=== PATIENT | female | born 1985 | race Caucasian/White ===

== ENCOUNTER 2017-12-14 17:55 | Emergency (ER) | payer OTHER, MEDICAID ==
[2017-12-14 20:02] LABS: Urine Blood NEGATIVE (NEG); Urine Glucose NEGATIVE (NEG); Urine Protein NEGATIVE (NEG); Urine Specific Gravity >1.030 (1.005-1.030)
[2017-12-14 20:04] LABS: Absolute Lymphocytes (CBC) 2.9 K/uL (0.7-4.9); Absolute Monocytes 0.8 K/uL (0.1-1.3); Absolute Neutrophil 2.9 K/uL (1.8-8.0); Basophils % 0.4 % (0-1.3); Eosinophils % 3.2 % (0-4.4); Hematocrit 35.8 % (36.0-45.0); Lymphocytes % 42.6 % (15.3-44.8); MCH 29.6 pg (27.0-35.0); MCV 87.3 fL (80-100); MPV 6.8 fL (7.6-11.3)
[2017-12-14] MEDS ORDERED: ONDANSETRON 4 MG/2 ML VIAL ONE (20:11)
[2017-12-14] MEDS ORDERED: ACETAMINOPHEN 500 MG TAB ONE (20:13)
[2017-12-14 20:44] LABS: BUN Blood Urea Nitrogen 13 mg/dL (7-18); Bicarbonate 23 mmol/L (21-32); Glucose Level 81 mg/dL (74-106); HCG, Quantitative 30922 mIU/mL (1-3); Potassium 3.4 mmol/L (3.5-5.1); Sodium Level 136 mmol/L (136-145)
[2017-12-14 20:57] LABS: Urine Bacteria 20-50 /HPF (<20); Urine Culture Reflex Order REFLEXED; Urine Mucus SLIGHT /HPF (NONE SEEN); Urine RBC <5 /HPF (NONE SEEN)
--- NOTE | 2017-12-14 21:07 | RAD REPORT ---
EXAM DESCRIPTION: US - Pelvis Complete - 12/14/2017 8:45 pm CLINICAL HISTORY: Pelvic COMPARISON: None. TECHNIQUE: Transabdominal pelvic sonography was performed. FINDINGS: A normal shaped intrauterine gestational sac identified with yolk sac and pole. Gest ational sac and pole measurements indicate 6 week 4 day age. Calculated CUCA is 08/05/2018. Hear t rate was 121 BPM. No intrauterine hematoma or mass. No suspicious adnexal finding. IMPRESSION: Single 6 week 4 day IUP with 121 BPM heart rate.
[2017-12-14] MEDS ORDERED: AZITHROMYCIN 250 MG TAB ONE (21:52)
[2017-12-14] MEDS ORDERED: CEFTRIAXONE/SWI 1gm 1 GM/10 ML SYR ONE (21:52)
--- NOTE | 2017-12-14 22:26 | ER ---
Nurse's Notes [facility] Name: Janet Alcantara Age: 32 yrs Sex: Female : 1985 Arrival Date: 12/14/2017 Time: 17:59 Bed 14 Private MD: Diagnosis: Acute pelvic pain in first trimester ;vaginal discharge;nausea Presentation: 12/14 18:05 Presenting complaint: Patient states: Reports foul smelling bloody yellow discharge for aj 4-5 days with sharp pelvic pains and migraine. Transition of care: patient was not received from another setting of care. Onset of symptoms was December 09, 2017. Risk Assessment: Do you want to hurt yourself or someone else? Patient reports no desire to harm self or others. Initial Sepsis Screen: Does the patient meet any 2 criteria? No. Patient's initial sepsis screen is negative. Does the patient have a suspected source of infection? No. Patient's initial sepsis screen is negative. Care prior to arrival: None. 18:05 Method Of Arrival: Ambulatory aj 18:05 Acuity: NUNO 3 aj Triage Assessment: 18:07 General: Appears in no apparent distress. comfortable, Behavior is calm, cooperative, aj appropriate for age. Pain: Complains of pain in pelvis. Neuro: Level of Consciousness is awake, alert, obeys commands, Oriented to person, place, time, situation, Appropriate for age. Respiratory: Airway is patent Respiratory effort is even, unlabored, Respiratory pattern is regular, symmetrical. : Reports discharge, malodorous, yellow, pain in suprapubic area vaginal bleeding that is spotty. Derm: Skin is intact, is healthy with good turgor, Skin is pink, warm \\T\\ dry. normal. 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 - Social history:: Smoking status: Patient uses tobacco products, smokes one-half pack cigarettes per day. - Ebola Screening: : Patient negative for fever greater than or equal to 101.5 degrees Fahrenheit, and additional compatible Ebola Virus Disease symptoms Patient denies exposure to infectious person Patient denies travel to an Ebola-affected area in the 21 days before illness onset No symptoms or risks identified at this time. - Family history:: not pertinent. - Hospitalizations: : No recent hospitalization is reported. Screenin:50 Abuse screen: Denies threats or abuse. Nutritional screening: No deficits noted. tl2 Tuberculosis screening: No symptoms or risk factors identified. Fall Risk None identified. Assessment: 19:50 General: Appears in no apparent distress. uncomfortable, Behavior is calm, cooperative, tl2 appropriate for age. Pain: Denies pain. Neuro: Level of Consciousness is awake, alert, obeys commands, Oriented to person, place, time, situation. Cardiovascular: Denies chest pain. Respiratory: Airway is patent Respiratory effort is even, unlabored, Respiratory pattern is regular, symmetrical. GI: Reports nausea. : No signs and/or symptoms were reported regarding the genitourinary system. : Reports discharge, malodorous, yellow, vaginal bleeding that is spotty. Derm: Skin is pink, warm \\T\\ dry. 21:12 Reassessment: Patient appears in no apparent distress at this time. Patient and/or tl2 family updated on plan of care and expected duration. Pain level reassessed. Patient is alert, oriented x 3, equal unlabored respirations, skin warm/dry/pink. Awaiting US results. 22:22 Reassessment: Patient appears in no apparent distress at this time. Patient and/or tl2 family updated on plan of care and expected duration. Pain level reassessed. Patient is alert, oriented x 3, equal unlabored respirations, skin warm/dry/pink. pt verbalized understanding of discharge instructions, need for follow up and prescription usage Patient states feeling better. Vital Signs: 18:07 BP 145 / 86; Pulse 106; Resp 20; Temp 98.2; Pulse Ox 100% on R/A; Weight 61.23 kg; aj Height 5 ft. 7 in. (170.18 cm); 21:12 BP 138 / 89; Pulse 82; Resp 18; Pulse Ox 100% on R/A; tl2 18:07 Body Mass Index 21.14 (61.23 kg, 170.18 cm) ED Course: 17:59 Patient arrived in ED. mr 18:06 Triage completed. aj 18:07 Arm band placed on left wrist. Patient placed in waiting room, Patient notified of wait aj time. 19:11 Kamron Mcclain MD is Attending Physician. ga 19:21 Maricruz Alva, DONNA is Primary Nurse. tl2 19:50 Patient has correct armband on for positive identification. Placed in gown. Bed in low tl2 position. Call light in reach. Side rails up X 1. 19:59 Inserted saline lock: 22 gauge in left antecubital area, using aseptic technique. Blood tl2 collected. 20:00 Assist provider with pelvic exam: Set up pelvic tray. Performed by Kamron Mcclain MD tl2 Specimens sent to lab. Patient tolerated well. 20:44 Ultrasound completed. Patient tolerated well. sg3 20:45 US Pelvis Complete In Process Unspecified. EDNH 22:11 Charlotte Garcia MD is Referral Physician. wa 22:22 IV discontinued, intact, bleeding controlled, No redness/swelling at site. Pressure tl2 dressing applied. Administered Medications: 20:10 Drug: Zofran 4 mg Route: IVP; Site: left antecubital; tl2 22:24 Follow up: Response: No adverse reaction; Nausea is decreased tl2 20:11 Drug: Tylenol 1000 mg Route: PO; tl2 22:24 Follow up: Response: No adverse reaction; Pain is decreased tl2 22:01 Drug: Rocephin - (cefTRIAXone) 1 grams Route: IVPB; Infused Over: 30 mins; Site: left tl2 antecubital; 22:24 Follow up: IV Status: Completed infusion tl2 22:02 Drug: Zithromax 1 grams Route: PO; tl2 22:24 Follow up: Response: No adverse reaction tl2 Outcome: 22:11 Discharge ordered by . wa 22:22 Discharged to home ambulatory, with family. tl2 22:22 Condition: stable 22:22 Discharge instructions given to patient, family, Instructed on discharge instructions, follow up and referral plans. medication usage, Demonstrated understanding of instructions, follow-up care, medications, Prescriptions given X 1. 22:25 Patient left the ED. tl2 Signatures: Dispatcher [employer] EDNH Dia Li RN RN aj Rivera, Mary mr Maricruz Alva RN RN tl2 Kamron Mcclain MD MD wa Godinez, Ange 3
--- NOTE | 2017-12-14 22:27 | EDPHYS ---
Physician Documentation [facility] Name: Janet Alcantara Age: 32 yrs Sex: Female : 1985 Arrival Date: 12/14/2017 Time: 17:59 Bed 14 Private MD: ED Physician Kamron Mcclain HPI: 12/14 19:22 This 32 yrs old Female presents to ER via Ambulatory with complaints of 4wks wa , Vaginal Discharge, Vaginal Bleeding. 19:22 The patient presents with pelvic pain, that is located in/on the pelvis, the pain does wa not radiate, the pain is described as sharp, urinary symptoms, vaginal discharge, that is a moderate amount of malodorous yellow discharge, patient has not had similar discharge in the past, home preg test positive x 2. Onset: The symptoms/episode began/occurred 4 day(s) ago. Modifying factors: The symptoms are alleviated by nothing, the symptoms are aggravated by nothing. Associated signs and symptoms: Pertinent positives: vaginal discharge, Pertinent negatives: dyspareunia, dysuria, fever, hematuria, urinary frequency. Severity of symptoms: At their worst the symptoms were moderate, in the emergency department the symptoms are unchanged. The patient is sexually active, states had been celibate for 3 years. just recently had sex for the first time. The patient has not experienced similar symptoms in the past. The patient has not recently seen a physician. states has h/o enometriosis. has had related surgery x 6. also h/o x1. 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 - Social history:: Smoking status: Patient uses tobacco products, smokes one-half pack cigarettes per day. - Ebola Screening: : Patient negative for fever greater than or equal to 101.5 degrees Fahrenheit, and additional compatible Ebola Virus Disease symptoms Patient denies exposure to infectious person Patient denies travel to an Ebola-affected area in the 21 days before illness onset No symptoms or risks identified at this time. - Family history:: not pertinent. - Hospitalizations: : No recent hospitalization is reported. ROS: 19:27 Positive for pelvic pain, vaginal discharge, missed period. wa 19:27 Constitutional: Negative for fever, chills, and weight loss, Eyes: Negative for injury, pain, redness, and discharge, ENT: Negative for injury, pain, and discharge, Neck: Negative for injury, pain, and swelling, Cardiovascular: Negative for chest pain, palpitations, and edema, Respiratory: Negative for shortness of breath, cough, wheezing, and pleuritic chest pain, Back: Negative for injury and pain, MS/Extremity: Negative for injury and deformity, Skin: Negative for injury, rash, and discoloration, Neuro: Negative for headache, weakness, numbness, tingling, and seizure, Psych: Negative for depression, anxiety, suicide ideation, homicidal ideation, and hallucinations. 19:27 Abdomen/GI: Positive for abdominal pain, of the suprapubic area, right lower quadrant and left lower quadrant. 19:27 : Positive for pelvic pain, vaginal discharge, missed period. 19:27 All other systems are negative. Exam: 19:28 Constitutional: This is a well developed, well nourished patient who is awake, alert, wa and in no acute distress. Head/Face: Normocephalic, atraumatic. Eyes: Pupils equal round and reactive to light, extra-ocular motions intact. Lids and lashes normal. Conjunctiva and sclera are non-icteric and not injected. Cornea within normal limits. Periorbital areas with no swelling, redness, or edema. ENT: Nares patent. No nasal discharge, no septal abnormalities noted. Tympanic membranes are normal and external auditory canals are clear. Oropharynx with no redness, swelling, or masses, exudates, or evidence of obstruction, uvula midline. Mucous membranes moist. Neck: Trachea midline, no thyromegaly or masses palpated, and no cervical lymphadenopathy. Supple, full range of motion without nuchal rigidity, or vertebral point tenderness. No Meningismus. Cardiovascular: Regular rate and rhythm with a normal S1 and S2. No gallops, murmurs, or rubs. Normal PMI, no JVD. No pulse deficits. Respiratory: Lungs have equal breath sounds bilaterally, clear to auscultation and percussion. No rales, rhonchi or wheezes noted. No increased work of breathing, no retractions or nasal flaring. Back: No spinal tenderness. No costovertebral tenderness. Full range of motion. Skin: Warm, dry with normal turgor. Normal color with no rashes, no lesions, and no evidence of cellulitis. MS/ Extremity: Pulses equal, no cyanosis. Neurovascular intact. Full, normal range of motion. Neuro: Awake and alert, GCS 15, oriented to person, place, time, and situation. Cranial nerves II-XII grossly intact. Motor strength 5/5 in all extremities. Sensory grossly intact. Cerebellar exam normal. Normal gait. Psych: Awake, alert, with orientation to person, place and time. Behavior, mood, and affect are within normal limits. 19:28 Abdomen/GI: Inspection: abdomen appears normal, Bowel sounds: normal, Palpation: abdomen is soft and non-tender, in all quadrants. 22:08 : CVA tenderness, is absent, Pelvic Exam: External exam: is normal, Speculum exam: no wa bleeding is noted, no cervicitis, os that is closed, discharge, yellow, watery, yellowish d/c, the nurse was present for the exam. Vital Signs: 18:07 BP 145 / 86; Pulse 106; Resp 20; Temp 98.2; Pulse Ox 100% on R/A; Weight 61.23 kg; aj Height 5 ft. 7 in. (170.18 cm); 21:12 BP 138 / 89; Pulse 82; Resp 18; Pulse Ox 100% on R/A; tl2 18:07 Body Mass Index 21.14 (61.23 kg, 170.18 cm) aj MDM: 19:11 Patient medically screened. wa 19:28 Differential diagnosis: cervicitis, ectopic , endometriosis, threatened Ab, wa pelvic inflammatory disease, ruptured ectopic , urinary tract infection, vaginosis. 22:08 Data reviewed: vital signs, nurses notes, lab test result(s), radiologic studies. 22:09 Test interpretation: by ED physician or midlevel provider: wet prep negative. UA wnl. . wa 22:10 Test interpretation: by ED physician or midlevel provider: pelvic US: noted gestational wa sac in uterus. 6 wks 4 days. Response to treatment: the patient's symptoms have markedly improved after treatment. ED course: empiric tx with rocephin and zithro. close f/u.. 12/14 19:21 Order name: Quantitative Hcg; Complete Time: 22:09 pa 12/14 19:21 Order name: Abo/rh Typing; Complete Time: 20:34 pa 12/14 19:21 Order name: Basic Metabolic Panel; Complete Time: 22: pa 12/14 19:21 Order name: CBC with Diff; Complete Time: 22: pa 12/14 19:21 Order name: Urine Microscopic Only; Complete Time: 22: pa 12/14 19:21 Order name: GC (GONORR/CHLAMYDIA) Probe pa 12/14 19:21 Order name: Wet Prep; Complete Time: 20:34 pa 12/14 19:22 Order name: US Pelvis Complete; Complete Time: 21:11 pa 12/14 19:58 Order name: Urine Dipstick--Ancillary (enter results) [facility] 12/14 19:58 Order name: Urine --Ancillary (enter results) [facility] 12/14 19:59 Order name: Urine Dipstick-Ancillary; Complete Time: 20:34 [facility] 12/14 19:59 Order name: Urine --Ancillary; Complete Time: 20:34 [facility] 12/14 20:58 Order name: Urine Culture [facility] 12/14 19:21 Order name: Urine Test (obtain specimen); Complete Time: 19:59 pa 12/14 19:21 Order name: IV Saline Lock; Complete Time: 19:59 pa 12/14 19:21 Order name: Labs collected and sent; Complete Time: 19:59 pa 12/14 19:21 Order name: NPO; Complete Time: 19:44 pa 12/14 19:21 Order name: Urine Dipstick-Ancillary (obtain specimen); Complete Time: 19:59 pa Administered Medications: 20:10 Drug: Zofran 4 mg Route: IVP; Site: left antecubital; tl2 22:24 Follow up: Response: No adverse reaction; Nausea is decreased tl2 20:11 Drug: Tylenol 1000 mg Route: PO; tl2 22:24 Follow up: Response: No adverse reaction; Pain is decreased tl2 22:01 Drug: Rocephin - (cefTRIAXone) 1 grams Route: IVPB; Infused Over: 30 mins; Site: left tl2 antecubital; 22:24 Follow up: IV Status: Completed infusion tl2 22:02 Drug: Zithromax 1 grams Route: PO; tl2 22:24 Follow up: Response: No adverse reaction tl2 Disposition: 12/14/17 22:11 Discharged to Home. Impression: Acute pelvic pain in first trimester , vaginal discharge, nausea. - Condition is Stable. - Discharge Instructions: Pelvic Pain, Female, [id number], Abdominal Pain During , [id number]. - Prescriptions for promethazine 12.5 mg Oral tablet - take 1 tablet by ORAL route every 8 hours; 25 tablet. - Medication Reconciliation Form, Thank You Letter, Antibiotic Education, Prescription Opioid Use form. - Follow up: Charlotte Garcia MD; When: 2 - 3 days; Reason: Recheck today's complaints. - Problem is new. - Symptoms have improved. - Notes: follow up with the Ob doctor as discussed. return to ER for worsening pain and or bleeding. Signatures: Dispatcher [employer] EDDia Wilson RN RN Maricruz Ngo RN RN tl2 Kamron Mcclain MD MD pa Corrections: (The following items were deleted from the chart) 22:25 22:11 12/14/2017 22:11 Discharged to Home. Impression: Acute pelvic pain in first tl2 trimester ; vaginal discharge; nausea. Condition is Stable. Forms are Medication Reconciliation Form, Thank You Letter, Antibiotic Education, Prescription Opioid Use. Follow up: Charlotte Garcia; When: 2 - 3 days; Reason: Recheck today's complaints. Problem is new. Symptoms have improved. wa
[2017-12-15 01:28] VITALS: TEMP 98.2; O2SAT 100
[2017-12-15 01:29] VITALS: BP 138/89
[2017-12-19 04:04] LABS: C.trachomatis RNA,TMA Not Detected (Not Detected)
== END 2017-12-14 22:25 | disposition home or self-care (01) ==
LOC: ER 17:55
DX: N89.8 Other specified noninflammatory disorders of vagina (principal); O99.89 Other specified diseases and conditions complicating pregnancy, childbirth and the puerperium; F17.210 Nicotine dependence, cigarettes, uncomplicated; Z98.82 Breast implant status; Z3A.01 Less than 8 weeks gestation of pregnancy
CPT/HCPCS: 36415; 76856; 80048; 81003; 81015; 81025; 84702; 85025; 86900; 86901; 87086; 87088; 87210; 87490; 87590; 96365; 96375; 99284; J0696; J2405

== ENCOUNTER 2018-03-17 22:31 | Emergency (ER) | payer MEDICAID, OTHER ==
[2018-03-17 23:16] LABS: Absolute Lymphocytes (CBC) 2.7 K/uL (0.7-4.9); Absolute Monocytes 0.9 K/uL (0.1-1.3); Absolute Neutrophil 5.2 K/uL (1.8-8.0); Basophils % 0.4 % (0-1.3); Eosinophils % 2.2 % (0-4.4); Hematocrit 37.9 % (36.0-45.0); Lymphocytes % 30.4 % (15.3-44.8); MPV 7.4 fL (7.6-11.3); Monocytes % 9.6 % (3.3-12.3); RBC Red Blood Cell Count 4.29 M/uL (3.86-4.86)
[2018-03-17] MEDS ORDERED: NA CHLORIDE 0.9% 1,000 ML ONE (23:23)
[2018-03-17 23:40] LABS: Potassium 3.3 mmol/L (3.5-5.1); Thyroid Stimulating Hormone 1.15 uIU/mL (0.360-3.740)
--- NOTE | 2018-03-18 02:24 | ER ---
Nurse's Notes [facility] Name: Janet Alcantara Age: 33 yrs Sex: Female : 1985 Arrival Date: 03/17/2018 Time: 22:35 Bed 20 Private MD: Diagnosis: Abnormal uterine and vaginal bleeding, unspecified Presentation: 03/17 22:40 Presenting complaint: Patient states: I had a miscarriage about 4 months ago and have la1 been intermittently bleeding that has started to get much worse the last few days passing golf ball sized clots and soaking about a pad per hour. Transition of care: patient was not received from another setting of care. Onset of symptoms was March 17, 2018. Risk Assessment: Do you want to hurt yourself or someone else? Patient reports no desire to harm self or others. Initial Sepsis Screen: Does the patient meet any 2 criteria? No. Patient's initial sepsis screen is negative. Does the patient have a suspected source of infection? No. Patient's initial sepsis screen is negative. Care prior to arrival: None. 22:40 Method Of Arrival: Ambulatory la1 22:40 Acuity: NUNO 3 la1 CENTRAL SERVICES TECH: 03/18 02:49 LMP N/A - control method tl2 Historical: - Allergies: 03/17 22:42 No Known Allergies; la1 - PMHx: 22:42 "borderline diabetes"; Endometrosis; la1 - PSHx: 22:42 ; sx for endometriosis; la1 - Immunization history:: Adult Immunizations up to date. - Social history:: Smoking status: Patient/guardian denies using tobacco. - Ebola Screening: : No symptoms or risks identified at this time. Screenin:15 Abuse screen: Denies threats or abuse. Nutritional screening: No deficits noted. tl2 Tuberculosis screening: No symptoms or risk factors identified. Fall Risk None identified. Assessment: 23:15 General: Appears in no apparent distress. comfortable, Behavior is calm, cooperative, tl2 appropriate for age. Pain: Complains of pain in suprapubic area. Neuro: Level of Consciousness is awake, alert, obeys commands, Oriented to person, place, time, situation. Cardiovascular: Denies chest pain. Respiratory: Airway is patent Respiratory effort is even, unlabored, Respiratory pattern is regular, symmetrical. GI: Reports lower abdominal pain. : Vaginal discharge is bloody, Reports vaginal bleeding that is bright red, with clots. Derm: Skin is pink, warm \\T\\ dry. 03/18 00:19 Reassessment: Patient appears in no apparent distress at this time. Patient and/or tl2 family updated on plan of care and expected duration. Pain level reassessed. Patient is alert, oriented x 3, equal unlabored respirations, skin warm/dry/pink. 01:06 Reassessment: Patient appears in no apparent distress at this time. Patient and/or tl2 family updated on plan of care and expected duration. Pain level reassessed. Patient is alert, oriented x 3, equal unlabored respirations, skin warm/dry/pink. 01:48 Reassessment: Patient appears in no apparent distress at this time. Patient and/or tl2 family updated on plan of care and expected duration. Pain level reassessed. Patient is alert, oriented x 3, equal unlabored respirations, skin warm/dry/pink. awaiting US report. 02:47 Reassessment: Patient appears in no apparent distress at this time. Patient and/or tl2 family updated on plan of care and expected duration. Pain level reassessed. Patient is alert, oriented x 3, equal unlabored respirations, skin warm/dry/pink. pt verbalized understanding of discharge instructions, need for follow up and prescription usage. Vital Signs: 03/17 22:42 BP 139 / 90; Pulse 102; Resp 18; Temp 97.5; Pulse Ox 98% on R/A; Weight 63.5 kg; Height la1 5 ft. 7 in. (170.18 cm); 03/18 00:18 BP 131 / 90; Pulse 90; Resp 18; Pulse Ox 100% on R/A; tl2 01:06 BP 128 / 85; Pulse 98; Resp 18; Pulse Ox 100% on R/A; tl2 02:47 BP 127 / 88; Pulse 84; Resp 18; Pulse Ox 98% on R/A; tl2 03/17 22:42 Body Mass Index 21.93 (63.50 kg, 170.18 cm) la1 ED Course: 03/17 22:35 Patient arrived in ED. es 22:40 Yun Painter FNP-C is [facility]. snw 22:40 Rainer Howard MD is Attending Physician. snw 22:41 Triage completed. la1 22:42 Arm band placed on right wrist. la1 22:47 Maricruz Alva, RN is Primary Nurse. tl2 23:00 Ultrasound completed. Patient tolerated well. Notified REVENUE INSPECTOR/LUCI alex. sg3 23:15 Patient has correct armband on for positive identification. Placed in gown. Bed in low tl2 position. Call light in reach. Side rails up X 1. 23:15 Inserted saline lock: 22 gauge in right antecubital area, using aseptic technique. tl2 Blood collected. 03/18 02:24 Hardik Laureano MD is Referral Physician. snw 02:47 No provider procedures requiring assistance completed. IV discontinued, intact, tl2 bleeding controlled, No redness/swelling at site. Pressure dressing applied. Administered Medications: 03/17 23:14 Drug: NS 0.9% 1000 ml Route: IV; Rate: 1 bolus; Site: right antecubital; tl2 02 02:49 Follow up: IV Status: Completed infusion; IV Intake: 1000ml tl2 02:23 Drug: Doxycycline 100 mg Route: PO; tl2 02:50 Follow up: Response: No adverse reaction tl2 02:42 Drug: Cytotec 200 mcg Route: PO; tl2 02:50 Follow up: Response: No adverse reaction; Medication administered at discharge. tl2 Intake: 02:49 IV: 1000ml; Total: 1000ml. tl2 Outcome: 02:24 Discharge ordered by MD. snw 02:47 Discharged to home ambulatory. tl2 02:47 Condition: stable 02:47 Discharge instructions given to patient, Instructed on discharge instructions, follow up and referral plans. medication usage, Demonstrated understanding of instructions, follow-up care, medications, Prescriptions given X 3. 02:50 Patient left the ED. tl2 Signatures: Dispatcher [employer] EDME Yun Painter FNP-C FRONT DESK COORDINATOR-Stacy Robledo Lee, RN RN la1 Maricruz Alva RN RN tl2 Ange Glasgow sg3 Corrections: (The following items were deleted from the chart) 03/17 23:19 23:18 In radiology for Transvaginal Study (Probe)+[email or web address]. EDME sg3
--- NOTE | 2018-03-18 02:25 | EDPHYS ---
Physician Documentation [facility] Name: Janet Alcantara Age: 33 yrs Sex: Female : 1985 Arrival Date: 03/17/2018 Time: 22:35 Bed 20 Private MD: ED Physician Rainer Howard HPI: 03/17 22:54 This 33 yrs old Female presents to ER via Ambulatory with complaints of snw Vaginal Bleeding. 22:54 The patient presents with vaginal bleeding that is heavy, with clots. Onset: The snw symptoms/episode began/occurred suddenly, 3 day(s) ago, and became worse and became persistent. Modifying factors: The symptoms are alleviated by nothing. Associated signs and symptoms: Pertinent positives: cramping, vaginal bleeding. Severity of symptoms: At their worst the symptoms were moderate, severe. The patient is sexually active, reportedly has a single partner. The patient has not experienced similar symptoms in the past. The patient has been recently seen at the [facility] Emergency Department, 4 mo ago. 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 - Social history:: Smoking status: Patient/guardian denies using tobacco. - Ebola Screening: : No symptoms or risks identified at this time. ROS: 22:52 Constitutional: Negative for fever, chills, and weight loss, Eyes: Negative for injury, snw pain, redness, and discharge, ENT: Negative for injury, pain, and discharge, Neck: Negative for injury, pain, and swelling, Cardiovascular: Negative for chest pain, palpitations, and edema, Respiratory: Negative for shortness of breath, cough, wheezing, and pleuritic chest pain, Abdomen/GI: Negative for abdominal pain, nausea, vomiting, diarrhea, and constipation, Back: Negative for injury and pain, MS/Extremity: Negative for injury and deformity, Skin: Negative for injury, rash, and discoloration, Neuro: Negative for headache, weakness, numbness, tingling, and seizure. 22:52 : Positive for injury or acute deformity, vaginal bleeding, passing large clots, pieces of tissue noted per pt. Pt states she has been bleeding since taking the morning after pill four months ago but has now started passing large clots and pieces of what looks like tissue. Exam: 22:52 Constitutional: This is a well developed, well nourished patient who is awake, alert, snw and in no acute distress. Head/Face: Normocephalic, atraumatic. Eyes: Pupils equal round and reactive to light, extra-ocular motions intact. Lids and lashes normal. Conjunctiva and sclera are non-icteric and not injected. Cornea within normal limits. Periorbital areas with no swelling, redness, or edema. ENT: Nares patent. No nasal discharge, no septal abnormalities noted. Tympanic membranes are normal and external auditory canals are clear. Oropharynx with no redness, swelling, or masses, exudates, or evidence of obstruction, uvula midline. Mucous membranes moist. Neck: Trachea midline, no thyromegaly or masses palpated, and no cervical lymphadenopathy. Supple, full range of motion without nuchal rigidity, or vertebral point tenderness. No Meningismus. Chest/axilla: Normal chest wall appearance and motion. Nontender with no deformity. No lesions are appreciated. Respiratory: Lungs have equal breath sounds bilaterally, clear to auscultation and percussion. No rales, rhonchi or wheezes noted. No increased work of breathing, no retractions or nasal flaring. Abdomen/GI: Soft, non-tender, with normal bowel sounds. No distension or tympany. No guarding or rebound. No evidence of tenderness throughout. Back: No spinal tenderness. No costovertebral tenderness. Full range of motion. Female : Normal external genitalia. Skin: Warm, dry with normal turgor. Normal color with no rashes, no lesions, and no evidence of cellulitis. MS/ Extremity: Pulses equal, no cyanosis. Neurovascular intact. Full, normal range of motion. Neuro: Awake and alert, GCS 15, oriented to person, place, time, and situation. Cranial nerves II-XII grossly intact. Motor strength 5/5 in all extremities. Sensory grossly intact. Cerebellar exam normal. Normal gait. 22:52 Cardiovascular: Rate: tachycardic, Rhythm: regular, Pulses: no pulse deficits are appreciated, Heart sounds: normal, JVD: is not appreciated. Vital Signs: 22:42 BP 139 / 90; Pulse 102; Resp 18; Temp 97.5; Pulse Ox 98% on R/A; Weight 63.5 kg; Height la1 5 ft. 7 in. (170.18 cm); 03/18 00:18 BP 131 / 90; Pulse 90; Resp 18; Pulse Ox 100% on R/A; tl2 01:06 BP 128 / 85; Pulse 98; Resp 18; Pulse Ox 100% on R/A; tl2 02:47 BP 127 / 88; Pulse 84; Resp 18; Pulse Ox 98% on R/A; tl2 03/17 22:42 Body Mass Index 21.93 (63.50 kg, 170.18 cm) la1 MDM: 03/17 22:47 Patient medically screened. snw 23:15 Data reviewed: vital signs, nurses notes. Data interpreted: Pulse oximetry: on room air snw is 98 %. Counseling: I had a detailed discussion with the patient and/or guardian regarding: the historical points, exam findings, and any diagnostic results supporting the discharge/admit diagnosis. Physician consultation: Rainer Howard MD was called at 23:16, regarding patient's condition, will call Dr. Laureano when labs return. 03/18 02:17 Physician consultation: Hardik Laureano MD was called at 02:18, was contacted at 02:18, snw regarding consult, and will see patient in office, would like medications started, doxycycline 100 mcg po BID x 10 days, Cytotec 100 mcg po q6 hours x 5 tabs. 03/17 22:46 Order name: Basic Metabolic Panel; Complete Time: 23:41 snw 03/17 22:46 Order name: CBC with Diff; Complete Time: 23:21 snw 03/17 22:46 Order name: TS; Complete Time: 00:28 snw 03/17 22:46 Order name: TSH; Complete Time: 23:41 snw 03/17 22:46 Order name: HCG-Quantitative; Complete Time: 23:41 snw 03/17 22:46 Order name: US Transvaginal Study (Probe) snw 03/17 22:46 Order name: IV Saline Lock; Complete Time: 23:00 snw 03/17 22:46 Order name: Labs collected and sent; Complete Time: 23:00 snw 03/18 02:23 Order name: PO challenge: juice; Complete Time: 02:26 fred Administered Medications: 03/17 23:14 Drug: NS 0.9% 1000 ml Route: IV; Rate: 1 bolus; Site: right antecubital; tl2 03/18 02:49 Follow up: IV Status: Completed infusion; IV Intake: 1000ml tl2 02:23 Drug: Doxycycline 100 mg Route: PO; tl2 02:50 Follow up: Response: No adverse reaction tl2 02:42 Drug: Cytotec 200 mcg Route: PO; tl2 02:50 Follow up: Response: No adverse reaction; Medication administered at discharge. tl2 Disposition: 09:04 Co-signature as Attending Physician, Rainer Howard MD I agree with the assessment and [facility] plan of care. Disposition: 03/18/18 02:24 Discharged to Home. Impression: Abnormal uterine and vaginal bleeding, unspecified. - Condition is Stable. - Discharge Instructions: Abnormal Uterine Bleeding. - Prescriptions for Doxycycline Hyclate 100 mg Oral Tablet - take 1 tablet by ORAL route every 12 hours; 20 tablet. Diclofenac Sodium 75 mg Oral Tablet Sustained Release - take 1 tablet by ORAL route 2 times per day; 30 tablet. Cytotec 100 mcg Oral tablet - take 1 tablet by ORAL route 4 times per day; 5 tablet. - Medication Reconciliation Form, Thank You Letter, Antibiotic Education, Prescription Opioid Use form. - Follow up: Hardik Laureano; When: 1 - 2 days; Reason: Recheck today's complaints, Continuance of care. Signatures: Dispatcher [employer] Rainer Ashley MD MD cha Therrien, Shelly, STAFF DEVELOPER-C STAFF DEVELOPER-Asadw Kaz Whitaker RN RN la1 Maricruz Alva RN RN tl2 Corrections: (The following items were deleted from the chart) 02:27 02:17 Physician consultation: Hardik Laureano MD was called at 02:18, was contacted at snw 02:18, regarding consult, snw 02:50 02:24 03/18/2018 02:24 Discharged to Home. Impression: Abnormal uterine and vaginal tl2 bleeding, unspecified. Condition is Stable. Discharge Instructions: Abnormal Uterine Bleeding. Prescriptions for Doxycycline Hyclate 100 mg Oral Tablet - take 1 tablet by ORAL route every 12 hours; 20 tablet, Diclofenac Sodium 75 mg Oral Tablet Sustained Release - take 1 tablet by ORAL route 2 times per day; 30 tablet, Cytotec 100 mcg Oral tablet - take 1 tablet by ORAL route 4 times per day; 5 tablet. and Forms are Medication Reconciliation Form, Thank You Letter, Antibiotic Education, Prescription Opioid Use. Follow up: Hardik Laureano; When: 1 - 2 days; Reason: Recheck today's complaints, Continuance of care. snw
[2018-03-18] MEDS ORDERED: DOXYCYCLINE 100 MG CAP PO ONE (02:29)
[2018-03-18] MEDS ORDERED: miSOPROStol 100 MCG TAB ONE (02:43)
[2018-03-18 03:20] VITALS: TEMP 97.5
[2018-03-18 03:22] VITALS: BP 127/88; O2SAT 98
--- NOTE | 2018-03-19 12:40 | RAD REPORT ---
EXAM DESCRIPTION: US - Transvaginal Study Probe - 03/17/2018 11:18 pm CLINICAL HISTORY: 33 years Female, VAGINAL BLEEDING COMPARISON: None. TECHNIQUE: Grayscale and Doppler sonogram of the pelvis. Transvaginal technique was used for better evaluation of the pelvic viscera. FINDINGS: The uterus measures 10.2 x 4.9 x 5.6 cm Endometrial stripe: 3.1 cm heterogeneously thickened with marked increased vascularity on color Doppl er interrogation. Right ovary: Measures 2.2 x 1.7 x 2.1 cm. Normal doppler flow. No mass lesion. Left ovary: Measures 4.0 x 2.6 x 2.3 cm. Normal doppler flow. No mass lesion. Free fluid. None. IMPRESSION: Marked heterogenous thickening of the endometrium with increased vascularity. Findings c old be due to retained products of conception versus infectious process. Neoplastic process is not en tirely excluded. MRI of the pelvis recommended. Electronically signed by Ayush Mendoza DO 03/18/2018 2:35 AM BULK DRIVER Due to temporary technical issues with the PACS/Fluency reporting system, reports are being signed by the in house radiologist as a courtesy to ensure prompt reporting. The interpreting radiologist is f ully responsible for the content of the report. ADDENDUM: Notification that physician was unable to speak on the phone on 03/18/2018 2:39 AM BULK DRIVER. Findings were discussed with verbally. Discussed by Dr Mendoza via telephone with Nurse Practitioner Yun marquez on 03/18/2018 2:39 AM BULK DRIVER who agreed to take the results on behalf of the physician, and acknowle dged their critical nature. Electronically signed by: Ayush Mendoza DO 03/18/2018 2:40 AM BULK DRIVER
== END 2018-03-18 02:50 | disposition home or self-care (01) ==
LOC: ER 22:31
DX: N93.9 Abnormal uterine and vaginal bleeding, unspecified (principal)
CPT/HCPCS: 36415; 76830; 80048; 84443; 84702; 85025; 86850; 86900; 86901; 96360; 96361; 99284; J7030

== ENCOUNTER 2018-03-28 12:19 | Emergency (ER) | payer OTHER ==
--- NOTE | 2018-03-28 13:29 | RAD REPORT ---
EXAM DESCRIPTION: US - Transvaginal OB - 03/28/2018 1:13 pm CLINICAL HISTORY: RPOC, pain VB COMPARISON: Transvaginal Study Probe dated 03/17/2018 FINDINGS: The uterus measures 8.1 x 5.5 x 6.2 cm. The endometrium is thickened and heterogenous measure up to 2 cm. The maternal adnexa and ovaries are within normal limits. Normal Doppler blood flow was demonstrated to both ovaries. Small hemorrhagic cyst measuring 17 x 14 mm is noted left ovary. IMPRESSION: Thickened and heterogenous endometrium is seen measuring up to 2 cm. However, the degree of endometrial thickening has reduced since 03/17/2018 prior study. If further assessment is clinica lly needed, direct visualization with hysteroscopy would be suggested.
[2018-03-28 13:35] LABS: Absolute Lymphocytes (CBC) 2.5 K/uL (0.7-4.9); Absolute Monocytes 0.8 K/uL (0.1-1.3); Basophils % 0.3 % (0-1.3); Eosinophils % 3.8 % (0-4.4); Hematocrit 31.8 % (36.0-45.0); Lymphocytes % 26.1 % (15.3-44.8); MPV 6.9 fL (7.6-11.3); Monocytes % 8.2 % (3.3-12.3); RBC Red Blood Cell Count 3.69 M/uL (3.86-4.86)
[2018-03-28 14:12] LABS: Urine Blood 3+ (NEG); Urine Glucose NEGATIVE (NEG); Urine Protein 2+ (NEG); Urine Specific Gravity 1.025 (1.005-1.030); Urine pH 5.5 (5.0-7.0)
[2018-03-28 14:23] LABS: Urine Bacteria <20 /HPF (<20); Urine Culture Reflex Order NOT NEEDED; Urine RBC TNTC /HPF (NONE SEEN)
--- NOTE | 2018-03-28 14:32 | ER ---
Nurse's Notes [facility] Name: Janet Alcantara Age: 33 yrs Sex: Female : 1985 Arrival Date: 03/28/2018 Time: 12:22 Bed 25 Private MD: Diagnosis: Complete miscarriage;abdominal pain;vaginal bleeding Presentation: 03/28 12:35 Presenting complaint: Patient states: "I came in 11 days ago and I had an incomplete aa5 but the pain is getting worse and I never took the antibiotics because I couldn't afford the antibiotics". Pt reports vaginal bleeding that has improved since last visit. Transition of care: patient was not received from another setting of care. Onset of symptoms was March 2018. Risk Assessment: Do you want to hurt yourself or someone else? Patient reports no desire to harm self or others. Initial Sepsis Screen: Does the patient meet any 2 criteria? HR > 90 bpm. Does the patient have a suspected source of infection? No. Patient's initial sepsis screen is negative. Care prior to arrival: None. 12:35 Method Of Arrival: Ambulatory aa5 12:35 Acuity: NUNO 3 aa5 Historical: - Allergies: 12:37 No Known Allergies; aa5 - PMHx: 12:37 "borderline diabetes"; Endometrosis; aa5 - PSHx: 12:37 ; sx for endometriosis; aa5 - Immunization history:: Flu vaccine is not up to date. - Social history:: Smoking status: Patient uses tobacco products, 1/4 pack a day . - Ebola Screening: : No symptoms or risks identified at this time. Screenin:43 Abuse screen: Denies threats or abuse. Denies injuries from another. Nutritional ak1 screening: No deficits noted. Tuberculosis screening: No symptoms or risk factors identified. Fall Risk None identified. Assessment: 12:42 General: Appears in no apparent distress. Behavior is calm, cooperative. Pain: ak1 Complains of pain in abdomen. Neuro: No deficits noted. Cardiovascular: No deficits noted. Respiratory: No deficits noted. GI: GI: Bowel sounds present X 4 quads. : Reports vaginal bleeding that is after incomplete . EENT: No signs and/or symptoms were reported regarding the EENT system. Derm: No signs and/or symptoms reported regarding the dermatologic system. Musculoskeletal: No signs and/or symptoms reported regarding the musculoskeletal system. 14:26 Reassessment: Patient appears in no apparent distress at this time. Patient and/or ak1 family updated on plan of care and expected duration. Pain level reassessed. Patient is alert, oriented x 3, equal unlabored respirations, skin warm/dry/pink. pt informed of wait for lab test . 14:27 GI: Abd is soft and non tender X 4 quads. ak1 Vital Signs: 12:37 BP 164 / 105; Pulse 125; Resp 18 S; Temp 97.1(TE); Pulse Ox 100% on R/A; Weight 63.5 kg aa5 (R); Height 5 ft. 7 in. (170.18 cm) (R); Pain 6/10; 13:45 BP 151 / 84; Pulse 95; Resp 18; Temp 97.6; Pulse Ox 100% on R/A; ak1 14:39 BP 122 / 83; Pulse 60; Resp 16; Temp 98.; Pulse Ox 98% on R/A; ak1 12:37 Body Mass Index 21.93 (63.50 kg, 170.18 cm) aa5 ED Course: 12:22 Patient arrived in ED. mr 12:35 Arm band placed on. aa5 12:36 Triage completed. aa5 12:38 Puneet Feliz MD is Attending Physician. ps1 12:42 Rekha Samuel, RN is Primary Nurse. ak1 12:44 Patient has correct armband on for positive identification. Bed in low position. Call ak1 light in reach. Side rails up X 1. Pulse ox on. NIBP on. 13:00 Urine collected: clean catch specimen, clear, rekha colored, blood tinged, Amount jp3 Voided: 80mL. 13:09 pelvic exam set up. ak1 13:15 Transvaginal OB US In Process Unspecified. EDMS 13:27 Initial lab(s) drawn, by me, sent to lab. Inserted saline lock: 20 gauge in left ak1 antecubital area, using aseptic technique. Blood collected. 13:43 Assist provider with pelvic exam: Set up pelvic tray. Performed by Puneet Feliz MD ak1 Patient tolerated well. 14:30 Hardik Laureano MD is Referral Physician. ps1 14:39 IV discontinued, intact, bleeding controlled, No redness/swelling at site. Pressure ak1 dressing applied. Administered Medications: No medications were administered Outcome: 14:32 Discharge ordered by MD. ps1 14:38 Discharged to home ambulatory. ak1 14:38 Condition: good 14:38 Discharge instructions given to patient, Instructed on discharge instructions, follow up and referral plans. no drinking with medication, no driving heavy equipment, medication usage, safe sex practices, Demonstrated understanding of instructions, follow-up care, medications, Prescriptions given X 1. 14:42 Patient left the ED. ak1 Signatures: Dispatcher [employer] [facility] TitoSarai Jose MiguelDori, RN RN aa5 Rekha Samuel RN RN ak1 Puneet Feliz MD MD ps1 Mike Boo jp3 Corrections: (The following items were deleted from the chart) 14:27 13:09 GI: Abdomen is tender to palpation in epigastric area ak1 ak1
--- NOTE | 2018-03-28 14:32 | EDPHYS ---
Physician Documentation [facility] Name: Janet Alcantara Age: 33 yrs Sex: Female : 1985 Arrival Date: 03/28/2018 Time: 12:22 Bed 25 Private MD: ED Physician Puneet Feliz HPI: 03/28 13:06 This 33 yrs old Female presents to ER via Ambulatory with complaints of ps1 Abdominal Pain. 13:06 . ps1 13:12 patient is bounceback for induced AB. Patient was given cytotec for induction last week ps1 sent home with doxy and did not fill Rx. Patient states that she had VB and tissue passing but she is still bleeding. She has felt febrile and now c/o abdominal pain localized to the pelvis. Rated as moderate and described as cramping. Has moderate amount of VB. . Historical: - Allergies: 12:37 No Known Allergies; aa5 - PMHx: 12:37 "borderline diabetes"; Endometrosis; aa5 - PSHx: 12:37 ; sx for endometriosis; aa5 - Immunization history:: Flu vaccine is not up to date. - Social history:: Smoking status: Patient uses tobacco products, 1/4 pack a day . - Ebola Screening: : No symptoms or risks identified at this time. ROS: 13:06 Constitutional: Negative for fever, chills, and weight loss, Eyes: Negative for injury, ps1 pain, redness, and discharge, Cardiovascular: Negative for chest pain, palpitations, and edema, Respiratory: Negative for shortness of breath, cough, wheezing, and pleuritic chest pain, MS/Extremity: Negative for injury and deformity, Skin: Negative for injury, rash, and discoloration, Neuro: Negative for headache, weakness, numbness, tingling, and seizure, Psych: Negative for depression, anxiety, suicide ideation, homicidal ideation, and hallucinations. 13:06 Abdomen/GI: Positive for abdominal pain. 13:12 : Positive for vaginal bleeding. ps1 Exam: 13:06 Constitutional: This is a well developed, well nourished patient who is awake, alert, ps1 and in no acute distress. Head/Face: Normocephalic, atraumatic. Eyes: Pupils equal round and reactive to light, extra-ocular motions intact. Lids and lashes normal. Conjunctiva and sclera are non-icteric and not injected. Chest/axilla: Normal chest wall appearance and motion. Nontender with no deformity. No lesions are appreciated. Cardiovascular: Regular rate and rhythm. No gallops, murmurs, or rubs. Normal PMI, no JVD. No pulse deficits. Respiratory: Lungs have equal breath sounds bilaterally, clear to auscultation and percussion. No rales, rhonchi or wheezes noted. No increased work of breathing, no retractions or nasal flaring. MS/ Extremity: Pulses equal, no cyanosis. Neurovascular intact. Full, normal range of motion. Neuro: Awake and alert, GCS 15, oriented to person, place, time, and situation. Cranial nerves II-XII grossly intact. Sensory grossly intact. Psych: Awake, alert, with orientation to person, place and time. Behavior, mood, and affect are within normal limits. 13:06 Abdomen/GI: Inspection: abdomen appears normal, Bowel sounds: normal, Palpation: mild abdominal tenderness, in the suprapubic area. Vital Signs: 12:37 BP 164 / 105; Pulse 125; Resp 18 S; Temp 97.1(TE); Pulse Ox 100% on R/A; Weight 63.5 kg aa5 (R); Height 5 ft. 7 in. (170.18 cm) (R); Pain 6/10; 13:45 BP 151 / 84; Pulse 95; Resp 18; Temp 97.6; Pulse Ox 100% on R/A; ak1 14:39 BP 122 / 83; Pulse 60; Resp 16; Temp 98.; Pulse Ox 98% on R/A; ak1 12:37 Body Mass Index 21.93 (63.50 kg, 170.18 cm) aa5 MDM: 12:59 Patient medically screened. ps1 03/28 12:49 Order name: Basic Metabolic Panel ps1 03/28 12:49 Order name: CBC with Diff; Complete Time: 14:26 ps1 03/28 12:49 Order name: Creatinine for Radiology; Complete Time: 14:26 ps1 03/28 12:49 Order name: Hepatic Function ps1 03/28 12:49 Order name: Lipase ps1 03/28 13:33 Order name: Urine Culture ak1 03/28 12:49 Order name: IV Saline Lock; Complete Time: 13:27 ps1 03/28 12:49 Order name: Labs collected and sent; Complete Time: 13:27 ps1 03/28 12:49 Order name: Transvaginal OB US; Complete Time: 13:33 ps1 03/28 13:33 Order name: Urine Microscopic Only; Complete Time: 14:26 ak1 03/28 13:33 Order name: Urine Dipstick-Ancillary (obtain specimen); Complete Time: 13:34 ak1 03/28 13:39 Order name: Urine Dipstick--Ancillary (enter results); Complete Time: 14:26 eb 03/28 13:39 Order name: Urine --Ancillary (enter results); Complete Time: 14:26 eb Administered Medications: No medications were administered Disposition: 03/28/18 14:32 Discharged to Home. Impression: Complete miscarriage, abdominal pain, vaginal bleeding. - Condition is Stable. - Discharge Instructions: Miscarriage. - Prescriptions for Doxycycline Hyclate 100 mg Oral Tablet - take 1 tablet by ORAL route every 12 hours; 20 tablet. - Medication Reconciliation Form, Thank You Letter, Antibiotic Education, Prescription Opioid Use form. - Follow up: Hardik Laureano MD; When: 7 - 10 days; Reason: Further diagnostic work-up, Recheck today's complaints, Continuance of care, Re-evaluation by your physician. Follow up: Emergency Department; When: As needed; Reason: Fever > 102 F, Worsening of condition. - Problem is an ongoing problem. - Symptoms have improved. Signatures: Dispatcher [employer] EDMS Dori Gillespie RN RN aa5 Ashlee Samuel RN RN ak1 Puneet Feliz MD MD ps1 Corrections: (The following items were deleted from the chart) 13:10 13:06 patient was drinking alcohol the other night and taking her gabapentin. She then ps1 started having intractable vomiting and now complaining of abdominal pain localized to epigastrium and RUQ. Pain rated as moderate. Still vomiting. No remitting factors. Worse with food. . ps1 13:15 13:06 Constitutional: Negative for fever, chills, and weight loss, Eyes: Negative for ps1 injury, pain, redness, and discharge, Cardiovascular: Negative for chest pain, palpitations, and edema, Respiratory: Negative for shortness of breath, cough, wheezing, and pleuritic chest pain, MS/Extremity: Negative for injury and deformity, Skin: Negative for injury, rash, and discoloration, Neuro: Negative for headache, weakness, numbness, tingling, and seizure, Psych: Negative for depression, anxiety, suicide ideation, homicidal ideation, and hallucinations, ps1 13:15 13:06 Abdomen/GI: Positive for abdominal pain, nausea and vomiting, ps1 ps1 13:33 13:06 Abdomen/GI: Inspection: abdomen appears normal, scar(s), are noted in the ps1 umbilical area, right lower quadrant and left lower quadrant, Bowel sounds: normal, Palpation: mild abdominal tenderness, in the epigastric area and right upper quadrant, ps1 14:42 14:32 03/28/2018 14:32 Discharged to Home. Impression: Complete miscarriage; abdominal ak1 pain; vaginal bleeding. Condition is Stable. Forms are Medication Reconciliation Form, Thank You Letter, Antibiotic Education, Prescription Opioid Use. Follow up: Hardik Laureano; When: 7 - 10 days; Reason: Further diagnostic work-up, Recheck today's complaints, Continuance of care, Re-evaluation by your physician. Follow up: Emergency Department; When: As needed; Reason: Fever > 102 F, Worsening of condition. Problem is an ongoing problem. Symptoms have improved. ps1
[2018-03-28 14:40] LABS: ALT/SGPT 16 U/L (12-78); AST/SGOT 13 U/L (15-37); Albumin 3.5 g/dL (3.4-5.0); Alkaline Phosphatase 75 U/L (45-117); BUN Blood Urea Nitrogen 11 mg/dL (7-18); Bicarbonate 25 mmol/L (21-32); Bilirubin Direct 0.1 mg/dL (0-0.2); Bilirubin Total 0.4 mg/dL (0.2-1.0); Glucose Level 99 mg/dL (74-106); Lipase 125 U/L (73-393); Potassium 3.9 mmol/L (3.5-5.1); Protein, Total 7.4 g/dL (6.4-8.2); Sodium Level 141 mmol/L (136-145)
[2018-03-28 15:19] VITALS: BP 122/83; TEMP 98; O2SAT 98
== END 2018-03-28 14:42 | disposition home or self-care (01) ==
LOC: ER 12:19
DX: O03.9 Complete or unspecified spontaneous abortion without complication (principal); F17.210 Nicotine dependence, cigarettes, uncomplicated
CPT/HCPCS: 36415; 76817; 80048; 80076; 81003; 81015; 81025; 83690; 85025; 87086; 87088; 99284

== ENCOUNTER 2018-10-02 14:58 | Emergency (ER) | payer OTHER, SELFPAY ==
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
[2018-10-02 16:48] VITALS: TEMP 98.6
[2018-10-02 16:49] VITALS: BP 126/86; O2SAT 100
== END 2018-10-02 16:32 | disposition home or self-care (01) ==
LOC: ER 14:58
DX: S63.591A Other specified sprain of right wrist, initial encounter (principal); X58.XXXA Exposure to other specified factors, initial encounter; Y93.89 Activity, other specified; Y92.009 Unspecified place in unspecified non-institutional (private) residence as the place of occurrence of the external cause; F17.210 Nicotine dependence, cigarettes, uncomplicated; Z98.82 Breast implant status
CPT/HCPCS: 99281

== ENCOUNTER 2018-12-08 12:58 | Emergency (ER) | payer SELFPAY ==
--- NOTE | 2018-12-08 14:01 | ER ---
Nurse's Notes [facility] Name: Janet Alcantara Age: 33 yrs Sex: Female : 1985 Arrival Date: 12/08/2018 Time: 12:59 Bed 24 Private MD: Diagnosis: Pain in left foot Presentation: 12/08 13:04 Presenting complaint: Patient states: left foot pain for one week. Transition of care: la1 patient was not received from another setting of care. Onset of symptoms was December 08, 2018. Risk Assessment: Do you want to hurt yourself or someone else? Patient reports no desire to harm self or others. Initial Sepsis Screen: Does the patient meet any 2 criteria? No. Patient's initial sepsis screen is negative. Does the patient have a suspected source of infection? No. Patient's initial sepsis screen is negative. Care prior to arrival: None. 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 - Social history:: Smoking status: Patient uses tobacco products, smokes one-half pack cigarettes per day. - Ebola Screening: : No symptoms or risks identified at this time. Screenin:09 Abuse screen: Denies threats or abuse. Denies injuries from another. Nutritional mg2 screening: No deficits noted. Tuberculosis screening: No symptoms or risk factors identified. Fall Risk None identified. Assessment: 13:08 General: Appears in no apparent distress. comfortable, Behavior is calm, cooperative. mg2 Pain: Complains of pain in left foot. Neuro: Level of Consciousness is awake, alert, obeys commands, Oriented to person, place, time. Cardiovascular: Capillary refill < 3 seconds Patient's skin is warm and dry. Respiratory: Airway is patent Respiratory effort is even, unlabored, Respiratory pattern is regular, symmetrical. GI: No signs and/or symptoms were reported involving the gastrointestinal system. : No signs and/or symptoms were reported regarding the genitourinary system. EENT: No signs and/or symptoms were reported regarding the EENT system. Derm: Skin is intact, is healthy with good turgor, Skin is pink, warm \\T\\ dry. normal. Musculoskeletal: Circulation, motion, and sensation intact. Capillary refill < 3 seconds, Reports pain in left foot since today. 14:08 Reassessment: Patient and/or family updated on plan of care and expected duration. Pain mg2 level reassessed. Vital Signs: 13:04 BP 142 / 90; Pulse 86; Resp 16; Temp 98.6; Pulse Ox 100% on R/A; Weight 74.84 kg; la1 Height 5 ft. 7 in. (170.18 cm); 14:08 BP 135 / 78; Pulse 88; Resp 18; Temp 98; Pulse Ox 100% on R/A; mg2 13:04 Body Mass Index 25.84 (74.84 kg, 170.18 cm) la1 ED Course: 12:59 Patient arrived in ED. as 13:04 Triage completed. la1 13:05 Haris Montalvo NP is PHCP. pm1 13:05 Hussain Rowell MD is Attending Physician. pm1 13:05 Arm band placed on right wrist. la1 13:08 Vignesh Cifuentes, DONNA is Primary Nurse. mg2 13:09 No provider procedures requiring assistance completed. Patient did not have IV access mg2 during this emergency room visit. 13:10 Patient has correct armband on for positive identification. mg2 13:33 X-ray completed. Portable x-ray completed in exam room. Patient tolerated procedure mh1 well. 13:34 Foot Left 3 View XRAY In Process Unspecified. EDMS Administered Medications: No medications were administered Outcome: 14:01 Discharge ordered by . pm1 14:09 Discharged to home ambulatory. mg2 14:09 Condition: stable 14:09 Discharge instructions given to patient, Instructed on discharge instructions, follow up and referral plans. Demonstrated understanding of instructions, follow-up care. 14:09 Patient left the ED. mg2 Signatures: Dispatcher [employer] EDMS Stacie Pope 1 Maddison Crane Lee, RN RN wy1 Haris Montalvo NP IT QUALITY ASSURANCE ANALYST pm1 Vignesh Cifuentes RN RN mg2
--- NOTE | 2018-12-08 14:02 | EDPHYS ---
Physician Documentation [facility] Name: Janet Alcantara Age: 33 yrs Sex: Female : 1985 Arrival Date: 12/08/2018 Time: 12:59 Bed 24 Private MD: ED Physician Hussain Rowell HPI: 12/08 13:08 This 33 yrs old Female presents to ER via Ambulatory with complaints of Left pm1 Foot Pain. 13:08 The patient presents with pain. The complaints affect the dorsum of left foot. Context: pm1 The problem was sustained at an unknown site, resulted from unknown but recently started wearing heels and running. Onset: The symptoms/episode began/occurred 1 week(s) ago. Modifying factors: The symptoms are alleviated by nothing. the symptoms are aggravated by weight bearing. Associated signs and symptoms: Pertinent positives: calf tenderness, fever, swelling, Pertinent negatives numbness, tingling. Treatment prior to arrival includes: over the counter medications, NSAIDS. Severity of symptoms: in the emergency department the symptoms are actually worse. The patient has not experienced similar symptoms in the past. 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 - Social history:: Smoking status: Patient uses tobacco products, smokes one-half pack cigarettes per day. - Ebola Screening: : No symptoms or risks identified at this time. ROS: 13:10 Constitutional: Negative for fever, chills, and weight loss, Neck: Negative for injury, pm1 pain, and swelling, Cardiovascular: Negative for chest pain, palpitations, and edema, Respiratory: Negative for shortness of breath, cough, wheezing, and pleuritic chest pain, Abdomen/GI: Negative for abdominal pain, nausea, vomiting, diarrhea, and constipation, Back: Negative for injury and pain, Skin: Negative for injury, rash, and discoloration, Neuro: Negative for headache, weakness, numbness, tingling, and seizure. 13:10 MS/extremity: Positive for pain, of the dorsum of left foot, Negative for decreased range of motion, deformity. Exam: 13:10 Constitutional: This is a well developed, well nourished patient who is awake, alert, pm1 and in no acute distress. Head/Face: Normocephalic, atraumatic. Neck: Trachea midline, no thyromegaly or masses palpated, and no cervical lymphadenopathy. Supple, full range of motion without nuchal rigidity, or vertebral point tenderness. No Meningismus. Chest/axilla: Normal chest wall appearance and motion. Nontender with no deformity. No lesions are appreciated. Cardiovascular: Regular rate and rhythm with a normal S1 and S2. No gallops, murmurs, or rubs. Normal PMI, no JVD. No pulse deficits. Respiratory: Lungs have equal breath sounds bilaterally, clear to auscultation and percussion. No rales, rhonchi or wheezes noted. No increased work of breathing, no retractions or nasal flaring. Back: No spinal tenderness. No costovertebral tenderness. Full range of motion. Skin: Warm, dry with normal turgor. Normal color with no rashes, no lesions, and no evidence of cellulitis. 13:10 Musculoskeletal/extremity: Extremities: grossly normal except: noted in the dorsum of left foot over proximal aspect of 1st metatarsal: ROM: no acute changes, Circulation is intact in all extremities. Sensation intact. 13:10 Neuro: Orientation: is normal, Motor: is normal, moves all fours. Vital Signs: 13:04 BP 142 / 90; Pulse 86; Resp 16; Temp 98.6; Pulse Ox 100% on R/A; Weight 74.84 kg; la1 Height 5 ft. 7 in. (170.18 cm); 14:08 BP 135 / 78; Pulse 88; Resp 18; Temp 98; Pulse Ox 100% on R/A; mg2 13:04 Body Mass Index 25.84 (74.84 kg, 170.18 cm) la1 MDM: 13:05 Patient medically screened. pm1 14:00 Data reviewed: vital signs. Data interpreted: Pulse oximetry: on room air is 100 %. pm1 Interpretation: normal. Counseling: I had a detailed discussion with the patient and/or guardian regarding: the historical points, exam findings, and any diagnostic results supporting the discharge/admit diagnosis, radiology results, the need for outpatient follow up, to return to the emergency department if symptoms worsen or persist or if there are any questions or concerns that arise at home. 12/08 13:08 Order name: Foot Left 3 View XRAY pm1 Administered Medications: No medications were administered Disposition: 15:06 Co-signature as Attending Physician, Hussain Rowell MD. rn Disposition: 12/08/18 14:01 Discharged to Home. Impression: Pain in left foot. - Condition is Stable. - Discharge Instructions: Foot Sprain. - Medication Reconciliation Form, Thank You Letter, Antibiotic Education, Prescription Opioid Use form. - Follow up: Emergency Department; When: As needed; Reason: Worsening of condition. Follow up: Private Physician; When: 2 - 3 days; Reason: Recheck today's complaints, Continuance of care, Re-evaluation by your physician. - Problem is new. - Symptoms have improved. Signatures: Dispatcher [employer] EDMS Hussain Rowell MD MD rn Kaz Whitaker RN RN la1 Haris Montalvo, VINYL TOP INSTALLER VINYL TOP INSTALLER pm1 Vignesh Cifuentes RN RN mg2 Corrections: (The following items were deleted from the chart) 14:09 14:01 12/08/2018 14:01 Discharged to Home. Impression: Pain in left foot. Condition is mg2 Stable. Forms are Medication Reconciliation Form, Thank You Letter, Antibiotic Education, Prescription Opioid Use. Follow up: Emergency Department; When: As needed; Reason: Worsening of condition. Follow up: Private Physician; When: 2 - 3 days; Reason: Recheck today's complaints, Continuance of care, Re-evaluation by your physician. Problem is new. Symptoms have improved. pm1
[2018-12-08 14:16] VITALS: O2SAT 100
[2018-12-08 14:18] VITALS: BP 135/78; TEMP 98
--- NOTE | 2018-12-08 14:20 | RAD REPORT ---
EXAM DESCRIPTION: RAD - Foot Left 3 View - 12/08/2018 1:37 pm CLINICAL HISTORY: PAIN COMPARISON: No comparisons FINDINGS: No bone or joint abnormality detected.
== END 2018-12-08 14:09 | disposition home or self-care (01) ==
LOC: ER 12:58
DX: M79.672 Pain in left foot (principal); F17.210 Nicotine dependence, cigarettes, uncomplicated
CPT/HCPCS: 99283

== ENCOUNTER 2019-06-29 07:23 | Emergency (ER) | payer SELFPAY ==
[2019-06-29] MEDS ORDERED: ACETAMINOPHEN 500 MG TAB ONE (08:41)
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
[2019-06-29 09:54] VITALS: BP 133/98; TEMP 97.2; O2SAT 100
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
== END 2019-06-29 09:47 | disposition home or self-care (01) ==
LOC: ER 07:23
DX: S60.221A Contusion of right hand, initial encounter (principal); S90.31XA Contusion of right foot, initial encounter; W23.0XXA Caught, crushed, jammed, or pinched between moving objects, initial encounter; Y93.9 Activity, unspecified; Y92.9 Unspecified place or not applicable
CPT/HCPCS: 99283

== ENCOUNTER 2020-02-12 13:33 | Emergency (ER) | payer SELFPAY ==
[2020-02-12 15:33] LABS: SARS-COV-2 RT PCR NEGATIVE (NEGATIVE)
[2020-02-12 16:43] LABS: Basophils % 0.1 % (0-1.3); Hematocrit 42.6 % (36.0-45.0); Lymphocytes % 16.3 % (15.3-44.8); Protime INR 1.02; RBC Red Blood Cell Count 4.78 M/uL (3.86-4.86)
[2020-02-12 16:44] LABS: ALT/SGPT 14 U/L (12-78); AST/SGOT 11 U/L (15-37); Albumin 3.9 g/dL (3.4-5.0); Alkaline Phosphatase 58 U/L (45-117); BUN Blood Urea Nitrogen 9 mg/dL (7-18); Bicarbonate 25 mmol/L (21-32); Bilirubin Direct 0.2 mg/dL (0-0.2); Glucose Level 100 mg/dL (74-106); Lipase 47 U/L (73-393); NT PRO-BNP 63 pg/mL (<125); Potassium 3.9 mmol/L (3.5-5.1); Protein, Total 8.6 g/dL (6.4-8.2); Sodium Level 138 mmol/L (136-145); Troponin (Emerg Dept Use Only) < 0.02 ng/mL (0.0-0.045)
--- NOTE | 2020-02-12 17:08 | ER ---
Nurse's Notes [facility] Name: Janet Alcantara Age: 34 yrs Sex: Female : 1985 Arrival Date: 02/12/2020 Time: 13:35 Bed 14 Private MD: Diagnosis: Gastritis, unspecified, without bleeding;Acute Gastroenteritis Presentation: 02/11 13:53 Chief complaint: Patient states: started this morning with what I thought was heartburn dm5 but it didn't go away and the pain is now in my chest, stomach and lower abdomen, and I am also nauseated and diarrhea. Coronavirus screen: diarrhea, nausea, Client presents with at least one sign or symptom that may indicate coronavirus-19. Standard/surgical mask placed on the client. Ebola Screen: Patient negative for fever greater than or equal to 101.5 degrees Fahrenheit, and additional compatible Ebola Virus Disease symptoms Patient denies exposure to infectious person. Patient denies travel to an Ebola-affected area in the 21 days before illness onset. No symptoms or risks identified at this time. Initial Sepsis Screen: Does the patient meet any 2 criteria? No. Patient's initial sepsis screen is negative. Does the patient have a suspected source of infection? Yes: Acute abdominal pain. Risk Assessment: Do you want to hurt yourself or someone else? Patient reports no desire to harm self or others. Onset of symptoms was February 12, 2020. 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 Nutritional screening: No deficits noted. aa5 Tuberculosis screening: No symptoms or risk factors identified. Fall Risk None identified. Assessment: 16:00 General: Appears uncomfortable, Behavior is calm, cooperative. Pain: Complains of pain aa5 in chest Pain currently is 5 out of 10 on a pain scale. Quality of pain is described as indigestion Is continuous. Neuro: Level of Consciousness is awake, alert, obeys commands, Oriented to person, place, time, situation. Cardiovascular: Heart tones S1 S2 present Rhythm is regular. Respiratory: Airway is patent Respiratory effort is even, unlabored, Respiratory pattern is regular, symmetrical, Breath sounds are clear bilaterally. GI: Abdomen is flat, non-distended, Bowel sounds present X 4 quads. Abd is soft and non tender X 4 quads. Reports diarrhea, indigestion, nausea. : No signs and/or symptoms were reported regarding the genitourinary system. EENT: No signs and/or symptoms were reported regarding the EENT system. Derm: Skin is pink, warm \\T\\ dry. Musculoskeletal: Range of motion: intact in all extremities. 16:47 Reassessment: Patient is alert, oriented x 3, equal unlabored respirations, skin aa5 warm/dry/pink. Vital Signs: 13:53 BP 139 / 84; Pulse 75; Resp 20; Temp 97.7; Pulse Ox 99% on R/A; Weight 72.57 kg; Height dm5 5 ft. 7 in. (170.18 cm); Pain 4/10; 13:53 Body Mass Index 25.06 (72.57 kg, 170.18 cm) dm5 ED Course: 13:35 Patient arrived in ED. rg4 13:56 Triage completed. dm5 15:58 Dori Gillespie, RN is Primary Nurse. aa5 16:00 Bryn Poe PA is PHCP. jr8 16:00 Ashutosh Madrigal MD is Attending Physician. jr8 16:00 Patient has correct armband on for positive identification. Placed in gown. Bed in low aa5 position. Call light in reach. Side rails up X 1. commercial credit head on. Pulse ox on. NIBP on. 16:00 Arm band placed on. aa5 16:15 Initial lab(s) drawn, by me, sent to lab. Inserted saline lock: 20 gauge in right dh3 forearm, using aseptic technique. Blood collected. 17:16 XRAY Chest (1 view) In Process Unspecified. EDMS 17:34 No provider procedures requiring assistance completed. IV discontinued, intact, em bleeding controlled, No redness/swelling at site. Pressure dressing applied. Administered Medications: 16:46 Drug: Zofran (Ondansetron) 4 mg Route: IVP; Site: right antecubital; aa5 17:35 Follow up: Response: No adverse reaction em 16:47 Drug: GI Cocktail without - (Maalox Suspension 30 ml, Lidocaine Liquid 2 % 15 aa5 ml) Route: PO; 17:35 Follow up: Response: No adverse reaction em Outcome: 17:08 Discharge ordered by MD. christianson 17:35 Discharged to home ambulatory. em 17:35 Condition: stable 17:35 Discharge instructions given to patient, Instructed on discharge instructions, follow up and referral plans. medication usage, Demonstrated understanding of instructions, follow-up care, medications, Prescriptions given X 3. 17:36 Patient left the ED. em Signatures: Dispatcher [employer] Symone Che RN RN [email or web address] Emerson Mariee RN RN Dori Kenney RN RN [email or web address] Bryn Poe PA PA jr8 Garcia, Rubi rg4 Mirna Arshad 3
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
--- NOTE | 2020-02-12 17:35 | RAD REPORT ---
EXAM DESCRIPTION: [facility]arn[facility] Single View02/12/2020 5:16 pm CLINICAL HISTORY: Chest pain COMPARISON: 2011 FINDINGS: The lungs appear clear of acute infiltrate. The heart is normal size IMPRESSION: No acute abnormalities displayed
[2020-02-12 17:47] VITALS: BP 139/84; TEMP 97.7; O2SAT 99
--- NOTE | 2020-02-13 22:34 | EKG ---
Test Date: 2020-02-12 Test Time: 16:43:33 Associate Editor: JORGE MEASUREMENT RESULTS: Intervals: Rate: 52 MT: 154 QRSD: 88 QT: 390 QTc: 362 Eugene: P: 62 MT: 154 QRS: 74 T: 55 INTERPRETIVE STATEMENTS: Sinus bradycardia with sinus arrhythmia ST abnormality, possible digitalis effect Abnormal ECG No previous ECG available for comparison Electronically Signed On 02-13-20 22:29:49 JAVA FRONT END WEB DEVELOPER by Joseluis Batista
== END 2020-02-12 17:36 | disposition home or self-care (01) ==
LOC: ER 13:33
DX: K52.9 Noninfective gastroenteritis and colitis, unspecified (principal); K29.70 Gastritis, unspecified, without bleeding; Z20.822 Contact with and (suspected) exposure to COVID-19; Z98.82 Breast implant status
CPT/HCPCS: 0240U; 36415; 71045; 80048; 80076; 83690; 83735; 83880; 84484; 85025; 85610; 93005; 96374; 99284

== ENCOUNTER 2021-07-26 09:01 | Emergency (ER) | payer SELFPAY ==
--- NOTE | 2021-07-26 09:18 | ER ---
Nurse's Notes [facility] Name: Janet Alcantara Age: 36 yrs Sex: Female : 1985 Arrival Date: 07/26/2021 Time: 09:05 Bed 19 Private MD: Diagnosis: Unspecified contact dermatitis, unspecified cause Presentation: 07/26 09:08 Chief complaint: Patient states: Rash on the back of Right knee x 1week, states "has a vg1 burning sensation". Coronavirus screen: Vaccine status: Patient reports receiving the 2nd dose of the covid vaccine. Client denies travel out of the [place] in the last 14 days. Ebola Screen: Patient denies exposure to infectious person. Patient denies travel to an Ebola-affected area in the 21 days before illness onset. Initial Sepsis Screen: Does the patient meet any 2 criteria? No. Patient's initial sepsis screen is negative. Does the patient have a suspected source of infection? No. Patient's initial sepsis screen is negative. Risk Assessment: Do you want to hurt yourself or someone else? Patient reports no desire to harm self or others. Onset of symptoms was July 19, 2021. 09:08 Method Of Arrival: Ambulatory vg1 09:08 Acuity: NUNO 4 vg1 Triage Assessment: 09:10 General: Appears in no apparent distress. comfortable, Behavior is calm, cooperative. vg1 Pain: Denies pain. Derm: Rash noted that is itchy, red, on posterior aspect of right knee. 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 - Social history:: Smoking status: Reported history of juuling and/or vaping. Screenin: Abuse screen: Denies threats or abuse. Denies injuries from another. Nutritional justin screening: No deficits noted. Tuberculosis screening: No symptoms or risk factors identified. Fall Risk None identified. Assessment: :22 Derm: Rash noted that is itchy, on right leg Reports itching. justin Vital Signs: 09:08 BP 130 / 95; Pulse 96; Resp 16; Temp 98.8(TE); Pulse Ox 100% ; Weight 63.5 kg; Height 5 vg1 ft. 7 in. (170.18 cm); Pain 0/10; 09:08 Body Mass Index 21.93 (63.50 kg, 170.18 cm) vg1 ED Course: 09:05 Patient arrived in ED. am2 09:06 [facility] 09:06 Rainer Howard MD is Attending Physician. jh7 09:10 Triage completed. vg1 09:10 Arm band placed on. vg1 09:12 Gena Ojeda, RN is Primary Nurse. justin 09:22 Patient has correct armband on for positive identification. Bed in low position. justin 09:22 No provider procedures requiring assistance completed. Patient did not have IV access justin during this emergency room visit. Administered Medications: No medications were administered Medication: :22 VIS not applicable for this client. justin Outcome: 09:17 Discharge ordered by . [facility] 09:22 Discharged to home ambulatory. justin 09:22 Condition: good 09:22 Discharge instructions given to patient, Prescriptions given X 2, Following a medical screening exam, the patient was provided information regarding alternative care sites and resources available per registration personnel. 09:28 Patient left the ED. justin Signatures: Dia Guadalupe 2 Dahlia Monzon, RN RN 1 Gena Ojeda, DONNA RN Debbie Rosa FNP [place] [id number]
--- NOTE | 2021-07-26 09:18 | EDPHYS ---
Physician Documentation [facility] Name: Janet Alcantara Age: 36 yrs Sex: Female : 1985 Arrival Date: 07/26/2021 Time: 09:05 Bed 19 Private MD: BIJU Physician Rainer Howard HPI: 07/26 09:15 This 36 yrs old Female presents to ER via Ambulatory with complaints of Rash - right jh7 leg. 09:15 The patient's rash thought to be caused by an unknown cause. The rash is located on the jh7 right leg. Onset: The symptoms/episode began/occurred 1 week(s) ago. Patient complains of worsening rash on her right knee and right lower leg x1 week. She states that the rash started is itchy, which is worsened, and is now burning. States that she went camping recently and is concerned that she may have been exposed to something. Reports that her friend who is a nurse thought it could be shingles and that she should be seen. No other symptoms at this time.. 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 - Social history:: Smoking status: Reported history of juuling and/or vaping. ROS: 09:15 Constitutional: Negative for fever, chills, and weight loss, ENT: Negative for injury, jh7 pain, and discharge, Neck: Negative for injury, pain, and swelling, Cardiovascular: Negative for chest pain, palpitations, and edema, Respiratory: Negative for shortness of breath, cough, wheezing, and pleuritic chest pain, Abdomen/GI: Negative for abdominal pain, nausea, vomiting, diarrhea, and constipation, Back: Negative for injury and pain, Neuro: Negative for headache, weakness, numbness, tingling, and seizure. 09:15 Skin: Positive for rash, Negative for cellulitis, ecchymosis, erythema, laceration(s). 09:15 All other systems are negative. Exam: 09:15 Constitutional: This is a well developed, well nourished patient who is awake, alert, jh7 and in no acute distress. Chest/axilla: Normal chest wall appearance and motion. Nontender with no deformity. No lesions are appreciated. Cardiovascular: Regular rate and rhythm with a normal S1 and S2. No gallops, murmurs, or rubs. Normal PMI, no JVD. No pulse deficits. Respiratory: Lungs have equal breath sounds bilaterally, clear to auscultation and percussion. No rales, rhonchi or wheezes noted. No increased work of breathing, no retractions or nasal flaring. Abdomen/GI: Soft, non-tender, with normal bowel sounds. No distension or tympany. No guarding or rebound. No evidence of tenderness throughout. Back: No spinal tenderness. No costovertebral tenderness. Full range of motion. Neuro: Awake and alert, GCS 15, oriented to person, place, time, and situation. Motor strength 5/5 in all extremities. Sensory grossly intact. Normal gait. 09:15 Skin: contact dermatitis, on the posterior aspect of right knee and right leg. Vital Signs: 09:08 BP 130 / 95; Pulse 96; Resp 16; Temp 98.8(TE); Pulse Ox 100% ; Weight 63.5 kg; Height 5 vg1 ft. 7 in. (170.18 cm); Pain 0/10; 09:08 Body Mass Index 21.93 (63.50 kg, 170.18 cm) vg1 MDM: 09:11 Patient medically screened. [facility] 09:15 Differential diagnosis: Contact dermatitis, shingles. Data reviewed: vital signs, [facility] nurses notes. Data interpreted: Pulse oximetry: is 100 %. Interpretation: normal. Counseling: I had a detailed discussion with the patient and/or guardian regarding: the historical points, exam findings, and any diagnostic results supporting the discharge/admit diagnosis, to return to the emergency department if symptoms worsen or persist or if there are any questions or concerns that arise at home. ED course: Rash consistent with contact dermatitis. The patient was very concerned about shingles, and agreed to prescribe Valtrex with the prednisone to cover for zoster.. Administered Medications: No medications were administered Disposition Summary: 07/26/21 09:17 Discharge Ordered Location: Home [facility] Problem: new [facility] Symptoms: are unchanged [facility] Condition: Stable [facility] Diagnosis - Unspecified contact dermatitis, unspecified cause [facility] Discharge Instructions: - Discharge Summary Sheet 7 - Contact Dermatitis 7 - Poison Breanna Dermatitis 7 - Shingles [facility] Forms: - Medication Reconciliation Form [facility] - Thank You Letter [facility] - Work release form justin Prescriptions: - Valtrex 1 gram Oral tablet - take 1 tablet by ORAL route every 8 hours for 7 days; 21 tablet; Refills: 0, [facility] Product Selection Permitted - Prednisone 20 mg Oral Tablet - take 2 tablets by ORAL route once daily for 5 days; 10 tablet; Refills: 0, [facility] Product Selection Permitted Signatures: Dahlia Monzon, RN RN vg1 Debbie Rosa, MVA REACTOR OPERATOR HEAD MVA REACTOR OPERATOR HEAD [facility]
[2021-07-26 09:36] VITALS: BP 130/95; TEMP 98.8; O2SAT 100
== END 2021-07-26 09:28 | disposition home or self-care (01) ==
LOC: ER 09:01
DX: L25.9 Unspecified contact dermatitis, unspecified cause (principal)
CPT/HCPCS: 99282

== ENCOUNTER 2022-12-27 06:19 | Emergency (ER) | payer SELFPAY ==
[2022-12-27 07:19] LABS: Hematocrit 38.8 % (36.0-45.0); Lymphocytes % 21.8 % (15.3-44.8); MCV 92.3 fL (80-100); Platelets 336 thou/uL (152-406)
[2022-12-27] MEDS ORDERED: KETOROLAC 30 MG/ML INJ ONE (07:32)
[2022-12-27] MEDS ORDERED: CEFTRIAXONE 1000 MG/VIAL ONE (07:32)
[2022-12-27] MEDS ORDERED: NA CHLORIDE 0.9% 500 ML ONE (07:32)
[2022-12-27 07:40] LABS: Albumin 3.8 g/dL (3.4-5.0); Bilirubin Direct 0.1 mg/dL (0-0.2); Bilirubin Indirect, Calculated 0.3 mg/dL (0.2-0.8); Bilirubin Total 0.4 mg/dL (0.2-1.0); Potassium 3.7 mEq/L (3.5-5.1); Protein, Total 8.3 g/dL (6.4-8.2)
[2022-12-27 07:46] LABS: Thyroid Stimulating Hormone 1.54 uIU/mL (0.358-3.740)
--- NOTE | 2022-12-27 08:10 | RAD REPORT ---
EXAM DESCRIPTION: [facility] Single [facility]/2022 8:01 am CLINICAL HISTORY: COUGH COMPARISON: Chest Single View dated 02/12/2020; CHEST PA AND LAT 2 VIEW dated 01/07/2012 TECHNIQUE: Portable AP view of the chest. FINDINGS: The lungs are clear. No pneumothorax or effusion. The cardiomediastinal contours are unre markable. IMPRESSION: No acute cardiopulmonary process.
[2022-12-27 08:13] LABS: SARS-CoV-2 Antigen Rapid Res Negative (Negative)
--- NOTE | 2022-12-27 08:47 | RAD REPORT ---
EXAM DESCRIPTION: CT - Soft Tissue Neck W/Contr CLINICAL HISTORY: neck pain , dysphagia COMPARISON: No comparisons TECHNIQUE: Thin axial CT images of the neck, performed following intravenous administration of 100 mL mL Isovue-300. Multiplanar reformats were generated and reviewed. All CT scans are performed using dose optimization technique as appropriate and may include automated exposure control or mA/KV adjustment according to patient size. FINDINGS: Asymmetric prominence of the right aspect of the buccal surface of the tongue projecting s uperiorly, without evidence of a discrete mass. Mild mucosal thickening and hyperenhancement in the nasopharynx. Minimal hyperenhancement in the xochilt on of the palatini tonsils bilaterally without significant swelling. Fossa Rosenmller are normal. Parapharyngeal fat triangles are symmetric. Tongue base structures are normal. Epiglottis and aryepiglottic folds are normal. Piriform sinuses are well aerated. The vocal cords are normal in appearance. No suspicious adenopathy. Mildly prominent lymph nodes bilaterally, up to 1 cm in short axis, likely reactive. Salivary glands are normal in appearance. Upper lung gtz are clear. Included intracranial contents are unremarkable. IMPRESSION: Mild mucosal thickening and hyperenhancement in the nasopharynx, may suggest ongoing pha ryngitis. No suspicious mucosal mass or adenopathy. Benign-appearing deep cervical lymph nodes as above
--- NOTE | 2022-12-27 09:05 | EDPHYS ---
Physician Documentation [facility] Name: Janet Alcantara Age: 37 yrs Sex: Female : 1985 Arrival Date: 12/27/2022 Time: 06:19 Bed 13 Private MD: ED Physician Hussain Rowell HPI: 12/27 06:46 This 37 yrs old Female presents to ER via Unassigned with complaints of Sore sp4 Throat. 06:59 . sp4 07:00 37-year-old female with no significant past medical history presents with acute onset sp4 sore throat and dysphagia. 2 weeks ago patient states she developed respiratory infection associated with sore throat. Patient reported that she has cough with purulent sputum associated with sensation of dysphagia in the neck. Patient reports she has difficulty swallowing solids. She can swallow fluids without a problem. Patient reports pain on swallowing. No similar problems in the past. Historical: - Allergies: 07:19 No Known Allergies; iw - Home Meds: 07:19 Adderall XR Oral [Active]; iw - PMHx: 07:18 Endometrosis; iw - PSHx: 07:18 section; surgery for endometriosis (Unknown); iw - Immunization history:: Adult Immunizations. - Family history:: not pertinent. - Social history:: Smoking status: Patient denies any tobacco usage or history of. ROS: 07:00 Constitutional: Negative for fever, chills, and weight loss, ENT: Positive sore throat, sp4 positive dysphagia in the neck, positive purulent sputum positive cough 07:00 All other systems are negative, Exam: 07:00 Constitutional: This is a well developed, well nourished patient who is awake, alert, sp4 and in no acute distress. Head/Face: Normocephalic, atraumatic. Eyes: Pupils equal round and reactive to light, extra-ocular motions intact. Lids and lashes normal. Conjunctiva and sclera are not injected. Cornea within normal limits. Periorbital areas with no swelling, redness, or edema. ENT: Nares patent. No nasal discharge, no septal abnormalities noted. Tympanic membranes are normal and external auditory canals are clear. Oropharynx with no redness, swelling, or masses, exudates, or evidence of obstruction, uvula midline. Mucous membranes moist. Neck: Trachea midline, no thyromegaly or masses palpated, and no cervical lymphadenopathy. Supple, full range of motion without nuchal rigidity, or vertebral point tenderness. Chest/axilla: Normal chest wall appearance and motion. Nontender with no deformity. No lesions are appreciated. Cardiovascular: Regular rate and rhythm with a normal S1 and S2. No gallops, murmurs, or rubs. Normal PMI, no JVD. No pulse deficits. Respiratory: Lungs have equal breath sounds bilaterally, clear to auscultation and percussion. No rales, rhonchi or wheezes noted. No increased work of breathing, no retractions or nasal flaring. Abdomen/GI: Soft, non-tender, with normal bowel sounds. No distension or tympany. No guarding or rebound. No evidence of tenderness throughout. Back: No spinal tenderness. No costovertebral tenderness. Skin: Warm, dry with normal turgor. Normal color with no rashes, no lesions, and no evidence of cellulitis. MS/ Extremity: Pulses equal, no cyanosis. Neurovascular intact. Full, normal range of motion. Neuro: Awake and alert, GCS 15, oriented to person, place, time, and situation. Cranial nerves II-XII grossly intact. Motor strength 5/5 in all extremities. Sensory grossly intact. Psych: Awake, alert, with orientation to person, place and time. Behavior, mood, and affect are within normal limits Vital Signs: 07:18 Weight 62.6 kg; Height 5 ft. 7 in. ; Pain 0/10; iw 08:33 BP 134 / 72; Pulse 78; Resp 16; Temp 97; Pulse Ox 99% ; ko1 09:08 BP 126 / 68; Pulse 74; Resp 16; Pulse Ox 99% ; ko1 07:18 Body Mass Index 21.61 (62.60 kg, 170.18 cm) iw 07:18 Pain Scale: Adult iw MDM: 07:00 Differential diagnosis: bronchitis, cocksackie virus, echovirus infection, vignesh-strickland sp4 virus, gingivostomatitis, group A strep tonsillitis, influenza. Data reviewed: vital signs, nurses notes, lab test result(s), radiologic studies, CT scan. Consideration of Admission/Observation Escalation of care including admission/observation considered. Transition of care: After a detail discussion of the patient's case, care is transferred to Hussain Rowell MD. 07:06 Patient medically screened. rn 07:17 ED course: Pt signed out to me by Dr. Rico, patient reports approximately 1 week rn of sore throat and cough. Had fever Sunday. Son with similar symptoms but got better with antibiotics. Patient reports able to eat solids and does not throw it up, but does feel discomfort and like it gets lodged in the mid throat. No shortness of breath.. 09:05 Counseling: I had a detailed discussion with the patient and/or guardian regarding the rn historical points, exam findings, and any diagnostic results supporting the discharge/admit diagnosis, lab results, radiology results, the need for outpatient follow up, to return to the emergency department if symptoms worsen or persist or if there are any questions or concerns that arise at home. Response to treatment: the patient's symptoms have mildly improved after treatment, and as a result, I will discharge patient. 09:05 ED course: I have personally reviewed all of the results, including but not limited to rn blood tests and imaging deemed necessary to safely discharge this patient at this time. All results given to and printed out for patient. I personally went over all the results with the patient and answered all questions. Patient will follow-up with PCP and or specialist as discussed. Return precautions given and understood.. 12/27 07:17 Order name: Strep rn 12/27 06:57 Order name: Basic Metabolic Panel; Complete Time: 07:42 sp4 12/27 06:57 Order name: CBC with Diff; Complete Time: 07:26 sp4 12/27 06:57 Order name: LFT's; Complete Time: 07:42 sp4 12/27 06:59 Order name: Test, Urine; Complete Time: 07:26 sp4 12/27 07:00 Order name: TSH; Complete Time: 08:02 sp4 12/27 07:00 Order name: T4 Free; Complete Time: 08:02 sp4 12/27 07:17 Order name: Flu; Complete Time: 08:14 rn 12/27 07:17 Order name: SARS RAPID; Complete Time: 08:14 rn 12/27 08:14 Order name: Throat Culture EDTX 12/27 06:57 Order name: CT Soft Tissue Neck W/contr; Complete Time: 08:55 sp4 12/27 07:17 Order name: XRAY Chest (1 view); Complete Time: 08:14 rn 12/27 06:57 Order name: IV Saline Lock; Complete Time: 07:14 sp4 12/27 06:57 Order name: Labs collected and sent; Complete Time: 07:14 sp4 12/27 06:57 Order name: O2 Per Protocol; Complete Time: 07:04 sp4 12/27 06:57 Order name: O2 Sat Monitoring; Complete Time: 07:04 sp4 Administered Medications: 07:24 Drug: NS 0.9% IV 500 ml IV at bolus once Route: IV; Rate: bolus; Site: right ko1 antecubital; 07:47 Follow up: IV Status: Completed infusion; IV Intake: 500ml ko1 07:32 Drug: Ketorolac IVP 30 mg IVP once Route: IVP; Site: right antecubital; ko1 07:47 Follow up: Response: No adverse reaction ko1 07:32 Drug: Rocephin - Rocephin (cefTRIAXone) IVPB 1 grams IVPB once over 30 mins; (mix in 50 ko1 mL NS) Route: IVPB; Infused Over: 30 mins; Site: right antecubital; 07:47 Follow up: Response: No adverse reaction; IV Status: Completed infusion; IV Intake: [id number] Disposition Summary: 12/27/22 09:05 Discharge Ordered Notes: Location: Home rn Problem: new rn Symptoms: have improved rn Condition: Stable rn Diagnosis - Acute pharyngitis, unspecified rn Followup: rn - With: Private Physician - When: As needed - Reason: Recheck today's complaints, Re-evaluation by your physician Discharge Instructions: - Discharge Summary Sheet rn - Pharyngitis rn Forms: - Medication Reconciliation Form rn - Thank You Letter rn - 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
--- NOTE | 2022-12-27 09:05 | ER ---
Nurse's Notes [facility] Name: Janet Alcantara Age: 37 yrs Sex: Female : 1985 Arrival Date: 12/27/2022 Time: 06:19 Bed 13 Private MD: Diagnosis: Acute pharyngitis, unspecified Presentation: 12/27 07:16 Chief complaint: Patient states: started with upper respiratory s/s X 2 weeks, then iw started coughing up bloody mucous, feels like she can't swallow , her neck is sore and she has pain with a cough and when she swallows. Coronavirus screen: Client presents with at least one sign or symptom that may indicate coronavirus-19. Ebola Screen: Patient negative for fever greater than or equal to 101.5 degrees Fahrenheit, and additional compatible Ebola Virus Disease symptoms Patient denies exposure to infectious person. Patient denies travel to an Ebola-affected area in the 21 days before illness onset. No symptoms or risks identified at this time. 07:16 Method Of Arrival: Ambulatory iw 07:16 Acuity: NUNO 3 iw 07:18 Initial Sepsis Screen: Does the patient meet any 2 criteria? No. Patient's initial iw sepsis screen is negative. Does the patient have a suspected source of infection? No. Patient's initial sepsis screen is negative. Risk Assessment: Do you want to hurt yourself or someone else? Patient reports no desire to harm self or others. Onset of symptoms was December 15, 2022. Historical: - Allergies: 07:19 No Known Allergies; iw - Home Meds: 07:19 Adderall XR Oral [Active]; iw - PMHx: 07:18 Endometrosis; iw - PSHx: 07:18 section; surgery for endometriosis (Unknown); iw - Immunization history:: Adult Immunizations. - Family history:: not pertinent. - Social history:: Smoking status: Patient denies any tobacco usage or history of. Screenin:39 [facility] ED Fall Risk Assessment (Adult) History of falling in the last 3 months, ko1 including since admission No falls in past 3 months (0 pts) Confusion or Disorientation No (0 pts) Intoxicated or Sedated No (0 pts) Impaired Gait No (0 pts) Mobility Assist Device Used No (0 pt) Altered Elimination No (0 pt) Score/Fall Risk Level 0 - 2 = Low Risk Oriented to surroundings, Maintained a safe environment, Educated pt \T\ family on fall prevention, incl call for assistance when getting out of bed, Assessed \T\ reinforced patient's understanding of fall precautions, Provided non-skid footwear, Hourly rounding (assess needs \T\ fall precautionary measures) done, Used ambulatory aids as needed (educated on \T\ assisted with), Used gait belt as appropriate. Abuse screen: Denies threats or abuse. Denies injuries from another. Nutritional screening: No deficits noted. Tuberculosis screening: No symptoms or risk factors identified. Assessment: 07:39 General: Appears in no apparent distress. comfortable, Behavior is calm, cooperative, ko1 appropriate for age. Pain: Complains of pain in throat. Neuro: No deficits noted. Cardiovascular: No deficits noted. Respiratory: Airway is patent Respiratory effort is even, unlabored, Breath sounds are clear bilaterally. GI: No deficits noted. : No deficits noted. EENT: Throat is pink. Derm: No deficits noted. Musculoskeletal: No deficits noted. Vital Signs: 07:18 Weight 62.6 kg; Height 5 ft. 7 in. ; Pain 0/10; iw 08:33 BP 134 / 72; Pulse 78; Resp 16; Temp 97; Pulse Ox 99% ; ko1 09:08 BP 126 / 68; Pulse 74; Resp 16; Pulse Ox 99% ; ko1 07:18 Body Mass Index 21.61 (62.60 kg, 170.18 cm) iw 07:18 Pain Scale: Adult iw ED Course: 06:23 Patient arrived in ED. jj6 06:46 Mak Rico MD is Attending Physician. sp4 07:04 Josefina Medley, RN is Primary Nurse. ko1 07:06 Attending Physician role handed off by Mak Rico MD rn 07:06 Hussain Rowell MD is Attending Physician. rn 07:14 T4 Free Sent. bc6 07:14 TSH Sent. bc6 07:14 Test, Urine Sent. bc6 07:14 Basic Metabolic Panel Sent. bc6 07:14 CBC with Diff Sent. bc6 07:14 LFT's Sent. bc6 07:14 Inserted saline lock: 20 gauge in right antecubital area, using aseptic technique. bc6 Blood collected. 07:18 Triage completed. iw 07:19 Arm band placed on. iw 07:31 SARS RAPID Sent. ko1 07:31 Strep Sent. ko1 07:39 Patient has correct armband on for positive identification. Bed in low position. Call ko1 light in reach. Side rails up X 1. Pulse ox on. NIBP on. Door closed. Noise minimized. Lights dimmed. Warm blanket given. 07:44 Flu Sent. ko1 07:57 CT Soft Tissue Neck W/contr In Process Unspecified. EDMS 08:03 XRAY Chest (1 view) In Process Unspecified. EDMS 09:08 No provider procedures requiring assistance completed. IV discontinued, intact, ko1 bleeding controlled, No redness/swelling at site. Pressure dressing applied. 09:08 Provided Education on: na. ko1 Administered Medications: 07:24 Drug: NS 0.9% IV 500 ml IV at bolus once Route: IV; Rate: bolus; Site: right ko1 antecubital; 07:47 Follow up: IV Status: Completed infusion; IV Intake: 500ml ko1 07:32 Drug: Ketorolac IVP 30 mg IVP once Route: IVP; Site: right antecubital; ko1 07:47 Follow up: Response: No adverse reaction ko1 07:32 Drug: Rocephin - Rocephin (cefTRIAXone) IVPB 1 grams IVPB once over 30 mins; (mix in 50 ko1 mL NS) Route: IVPB; Infused Over: 30 mins; Site: right antecubital; 07:47 Follow up: Response: No adverse reaction; IV Status: Completed infusion; IV Intake: [id number] Medication: 09:08 VIS not applicable for this client. ko1 Intake: 07:47 IV: 500ml; Total: 500ml. ko1 07:47 IV: 10ml; Total: 510ml. ko1 Outcome: 09:05 Discharge ordered by . rn 09:13 Discharged to home ambulatory, ko1 09:13 Condition: stable 09:13 Discharge instructions given to patient, Instructed on discharge instructions, follow up and referral plans. medication usage, Demonstrated understanding of instructions, follow-up care, medications, Prescriptions given X 2, 09:14 Patient left the ED. ko1 Signatures: Dispatcher [employer] EDAlexandria Lilly RN RN iw Nieto, Roman, MD MD rn Jeffries, Jennifer jj6 Josefina Medley RN RN mansoor1 Tala Snow bc6 Mak Rico MD MD sp4
[2022-12-27 09:39] VITALS: TEMP 97; O2SAT 99
[2022-12-27 09:40] VITALS: BP 126/68
== END 2022-12-27 09:14 | disposition home or self-care (01) ==
LOC: ER 06:19
DX: J02.9 Acute pharyngitis, unspecified (principal)
CPT/HCPCS: 36415; 70491; 71045; 80048; 80076; 81025; 84439; 84443; 85025; 87070; 87081; 87804; 87811; 96374; 96375; 99284; J0696; J7040; Q9967

== ENCOUNTER → 2023-03-09 | Emergency (ER) | payer SELFPAY ==
--- NOTE | 2023-03-09 20:58 | RAD REPORT ---
EXAM DESCRIPTION: RAD - Wrist Right 3 View - 03/09/2023 8:30 pm CLINICAL HISTORY: Right wrist pain status post injury FINDINGS: No fracture or dislocation is seen. If the patient continues to have symptoms to suggest a n occult fracture then a followup plain film series in 7 days would be recommended.
--- NOTE | 2023-03-09 21:05 | ER ---
Nurse's Notes [facility] Name: Janet Alcantara Age: 38 yrs Sex: Female : 1985 Arrival Date: 03/09/2023 Time: 19:31 Bed 12 Private MD: Diagnosis: Other specified sprain of right wrist Presentation: 03/09 19:54 Chief complaint: Patient states: right wrist pain from a slip and fall at work. cp4 Coronavirus screen: Client denies travel out of the [place] in the last 14 days. At this time, the client does not indicate any symptoms associated with coronavirus-19. Ebola Screen: Patient negative for fever greater than or equal to 101.5 degrees Fahrenheit, and additional compatible Ebola Virus Disease symptoms Patient denies exposure to infectious person. Patient denies travel to an Ebola-affected area in the 21 days before illness onset. No symptoms or risks identified at this time. Initial Sepsis Screen: Does the patient meet any 2 criteria? No. Patient's initial sepsis screen is negative. Does the patient have a suspected source of infection? No. Patient's initial sepsis screen is negative. Risk Assessment: Do you want to hurt yourself or someone else? Patient reports no desire to harm self or others. Onset of symptoms was March 09, 2023. 19:54 Method Of Arrival: Ambulatory cp4 19:54 Acuity: NUNO 4 cp4 Triage Assessment: 19:56 General: Appears in no apparent distress. Behavior is calm, cooperative, appropriate cp4 for age. Pain: Complains of pain in right wrist. Musculoskeletal: Reports pain in right wrist. Injury Description: contusion. Historical: - Allergies: 19:56 No Known Allergies; cp4 - PMHx: 19:56 Endometrosis; cp4 - PSHx: 19:56 section; surgery for endometriosis; cp4 - Immunization history:: Adult Immunizations up to date. - Social history:: Smoking status: Patient denies any tobacco usage or history of. Screenin:05 [facility] ED Fall Risk Assessment (Adult) Score/Fall Risk Level 0 - 2 = Low Risk. Abuse as6 screen: Denies threats or abuse. Denies injuries from another. Nutritional screening: No deficits noted. Tuberculosis screening: No symptoms or risk factors identified. Vital Signs: 19:54 BP 152 / 91; Pulse 96; Resp 16; Temp 98.2; Pulse Ox 100% ; Weight 61.23 kg; Height 5 cp4 ft. 7 in. ; Pain 5/10; 19:54 Body Mass Index 21.14 (61.23 kg, 170.18 cm) cp4 19:54 Pain Scale: Adult cp4 ED Course: 19:33 Patient arrived in ED. es 19:35 [facility] sb4 19:35 Fortunato Lamb DO is Attending Physician. sb4 19:56 Triage completed. cp4 19:56 Arm band placed on left wrist. Patient placed in waiting room. cp4 20:05 Bed in low position. Call light in reach. as6 20:32 Wrist Right 3 View XRAY In Process Unspecified. EDMS 21:04 Adolfo Benson MD is Referral Physician. sb4 21:18 Provided Education on: follow up. as6 21:18 No provider procedures requiring assistance completed. Patient did not have IV access as6 during this emergency room visit. Administered Medications: No medications were administered Medication: 20:05 VIS not applicable for this client. as6 Outcome: 21:05 Discharge ordered by . sb4 21:18 Discharged to home ambulatory, as6 21:18 Condition: stable 21:18 Discharge instructions given to patient, Instructed on discharge instructions, follow up and referral plans. Demonstrated understanding of instructions, follow-up care, 21:19 Patient left the ED. as6 Signatures: Dispatcher [employer] Stacy Tirado Ashby, RN RN as6 Racquel Oliver PA-C PA-C sb4 Danita Dixon [facility]
--- NOTE | 2023-03-09 21:05 | EDPHYS ---
Physician Documentation [facility] Name: Janet Alcantara Age: 38 yrs Sex: Female : 1985 Arrival Date: 03/09/2023 Time: 19:31 Bed 12 Private MD: ED Physician Fortunato Lamb HPI: 03/09 20:12 This 38 yrs old Female presents to ER via Ambulatory with complaints of Wrist Injury. sb4 20:12 The patient or guardian reports injury, pain. The complaints affect the right wrist sb4 diffusely. Context: The problem was sustained at work, resulted from a fall, on an outstretched hand. Onset: The symptoms/episode began/occurred just prior to arrival. Modifying factors: The symptoms are alleviated by holding still, the symptoms are aggravated by movement. The patient has not experienced similar symptoms in the past. Historical: - Allergies: 19:56 No Known Allergies; cp4 - PMHx: 19:56 Endometrosis; cp4 - PSHx: 19:56 section; surgery for endometriosis; cp4 - Immunization history:: Adult Immunizations up to date. - Social history:: Smoking status: Patient denies any tobacco usage or history of. ROS: 20:12 Constitutional: Negative for fever, chills, and weight loss, sb4 20:12 MS/extremity: Positive for injury or acute deformity, decreased range of motion, pain, tenderness, of the right wrist, 20:12 All other systems are negative, Exam: 20:12 Hand exam: ROM: limited active range of motion due to pain, limited passive range of sb4 motion due to pain, Circulation is intact in all extremities. Pulses: are normal with no appreciated deficits, Perfusion: the extremity is normally perfused throughout, 21:05 Constitutional: This is a well developed, well nourished patient who is awake, alert, sb4 and in no acute distress. Head/Face: Normocephalic, atraumatic. Eyes: Extra-ocular motions intact. Periorbital areas with no swelling, redness, or edema. ENT: Mucous membranes moist. Vital Signs: 19:54 BP 152 / 91; Pulse 96; Resp 16; Temp 98.2; Pulse Ox 100% ; Weight 61.23 kg; Height 5 cp4 ft. 7 in. ; Pain 5/10; 19:54 Body Mass Index 21.14 (61.23 kg, 170.18 cm) cp4 19:54 Pain Scale: Adult cp4 MDM: 19:53 Patient medically screened. sb4 21:04 Differential diagnosis: dislocation, closed fracture, contusion, sprain. Data reviewed: sb4 vital signs, nurses notes, radiologic studies, and as a result, I will discharge patient. Counseling: I had a detailed discussion with the patient and/or guardian regarding the historical points, exam findings, and any diagnostic results supporting the discharge/admit diagnosis, radiology results, to return to the emergency department if symptoms worsen or persist or if there are any questions or concerns that arise at home. 03/09 19:56 Order name: Wrist Right 3 View XRAY; Complete Time: 21:04 sb4 Administered Medications: No medications were administered Disposition: 20:35 I was immediately available on-site in the Emergency Department for consultation in the ms3 care of the patient. Disposition Summary: 03/09/23 21:05 Discharge Ordered Notes: Location: Home sb4 Problem: new sb4 Symptoms: are unchanged sb4 Condition: Stable sb4 Diagnosis - Other specified sprain of right wrist sb4 Followup: sb4 - With: Adolfo Benson MD - When: As needed - Reason: Further diagnostic work-up, Recheck today's complaints, Re-evaluation by your physician Discharge Instructions: - Discharge Summary Sheet sb4 - Wrist Sprain, Adult sb4 Forms: - Medication Reconciliation Form sb4 - Thank You Letter sb4 - Antibiotic Education sb4 - Prescription Opioid Use sb4 - Patient Portal Instructions sb4 - Leadership Thank You Letter sb4 Signatures: Dispatcher [employer] EDMS Fortunato Lamb DO DO ms3 Racquel Oliver PA-C PARandy sb4 Danita Dixon cp4
[2023-03-09 21:41] VITALS: BP 152/91; TEMP 98.2; O2SAT 100
== END ==
LOC: ER 19:31
DX: S63.591A Other specified sprain of right wrist, initial encounter (principal)

== ENCOUNTER 2023-07-21 17:21 | Emergency (ER) | payer SELFPAY ==
[2023-07-21] MEDS ORDERED: LORazepam 2 MG/ML VIAL ONE (17:47)
[2023-07-21 17:49] LABS: Absolute Eosinophils 0.2 K/uL (0-0.5); Absolute Lymphocytes (CBC) 1.5 K/uL (0.7-4.9); Absolute Monocytes 0.7 K/uL (0.1-1.3); Absolute Neutrophil 2.8 K/uL (1.8-8.0); Basophils % 0.5 % (0-1.3); Hemoglobin 13.6 g/dL (12.0-15.0); Lymphocytes % 29.4 % (15.3-44.8); MCH 30.7 pg (27.0-35.0); MCV 90.2 fL (80-100); Monocytes % 14.1 % (3.3-12.3); Nucleated Red Blood Cells % 0.5 % (0-0); Platelets 330 thou/uL (152-406); RBC Red Blood Cell Count 4.44 M/uL (3.86-4.86); Red Cell Distribution Width 12.8 % (12.1-15.2)
[2023-07-21 17:55] LABS: PT Prothrombin Time 11.9 SECONDS (9.5-12.5); Protime INR 1.08
[2023-07-21 18:26] LABS: Anion Gap 8.2 mEq/L (5.0-15.0); Potassium 3.2 mEq/L (3.5-5.1); Troponin High Sensitivity 5.5 pg/mL (<58.9)
[2023-07-21] MEDS ORDERED: POTASSIUM CL SA 10 MEQ TAB PO ONE (18:33)
[2023-07-21] MEDS ORDERED: NA CHLORIDE 0.9% 250 ML ONE (18:34)
[2023-07-21] MEDS ORDERED: KCL 20 MEQ/100 mL IVPB 100 ML IV ONE (18:34)
--- NOTE | 2023-07-21 18:56 | RAD REPORT ---
EXAM DESCRIPTION: [place] Single View07/21/2023 6:22 pm CLINICAL HISTORY: Chest pain COMPARISON: 2022 FINDINGS: The lungs appear clear of acute infiltrate. The heart is normal size IMPRESSION: No acute abnormalities displayed
--- NOTE | 2023-07-21 21:46 | EDPHYS ---
Physician Documentation [facility] Name: Janet Alcantara Age: 38 yrs Sex: Female : 1985 Arrival Date: 07/21/2023 Time: 17:21 Bed 6 Private MD: ED Physician Valdo Samuel HPI: 07/20 17:33 This 38 yrs old Female presents to ER via Unassigned with complaints of High ec2 Blood Pressure, Chest Pain. 17:33 Patient arrives today for evaluation of chest tightness and palpitations. Patient ec2 reports that she has been experiencing for the past several days. Reports recently diagnosed with hypertension, started on hydrochlorothiazide. Also history of ADHD, is on amphetamine salts. 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 - Infectious Disease History:: Denies. - Social history:: Smoking status: Patient denies any tobacco usage or history of. Patient uses recently quit smoking marijuana a few days ago. ROS: 17:33 Constitutional: as per hpi ec2 Exam: 17:33 Constitutional: GEN: NAD Head: atraumatic Eyes: EOMI Ears: External ears are ec2 normal. CV: regular rate LUNGS: no respiratory distress ABD: non-distended SKIN: no evidence of rashes MSK: no evidence of trauma NEURO: moves all extremities equally. Psych: Anxious individual is otherwise in no acute distress Vital Signs: 17:41 BP 156 / 107; Pulse 91; Resp 20; Temp 98.4(O); Pulse Ox 100% on R/A; Weight 58.06 kg; ss Height 5 ft. 7 in. ; Pain 0/10; 18:26 BP 127 / 98; Pulse 87; Resp 15; Pulse Ox 100% ; Pain 0/10; ss 19:13 BP 145 / 97; Pulse 81; Resp 22; Pulse Ox 100% on R/A; Pain 0/10; tm6 20:21 BP 128 / 84; Pulse 91; Pulse Ox 100% on R/A; tm6 20:35 BP 128 / 94; Pulse 100; Resp 20; Temp 98.4; Pulse Ox 100% on R/A; Pain 0/10; ss 21:48 BP 131 / 90; Pulse 81; Resp 20; Temp 98.4; Pulse Ox 100% ; Pain 0/10; bm8 17:41 Body Mass Index 20.05 (58.06 kg, 170.18 cm) ss 17:41 Pain Scale: Adult ss 18:26 Pain Scale: Adult ss 19:13 Pain Scale: Adult tm6 20:35 Pain Scale: Adult ss 21:48 Pain Scale: Adult bm8 Radha Coma Score: 20:35 Eye Response: spontaneous(4). Motor Response: obeys commands(6). Verbal Response: ss oriented(5). Total: 15. MDM: 17:26 Patient medically screened. ec2 17:33 Data reviewed: vital signs. ED course: Patient arrives today for evaluation of ec2 palpitations along with chest tightness. Examination remarkable for anxious individual is otherwise in no acute distress with a reassuring examination. Will obtain lab work, EKG, chest x-ray, give the patient Ativan for the patient's anxiety. Differential diagnosis included electrolyte disturbances, arrhythmia, ACS, anxiety.. 17:35 ED course: EKG independently reviewed and interpreted by me, shows normal sinus rhythm, ec2 rate 96, no acute ST segment elevations, intervals are nonconcerning. . 18:28 ED course: Metabolic profile shows slight hypokalemia with a potassium of 3.2, troponin ec2 within normal ranges. Will give the patient potassium . 18:29 ED course: Chest x-ray independently reviewed and interpreted by me, shows no acute ec2 intrathoracic process.. 18:57 ED course: Patient signed out pending repeat troponin.. ec2 07/20 17:27 Order name: Basic Metabolic Panel; Complete Time: 18:27 ec2 07/20 17:27 Order name: CBC with Diff; Complete Time: 18:24 ec2 07/20 17:27 Order name: PT-INR; Complete Time: 18:24 ec2 07/20 17:27 Order name: Troponin HS; Complete Time: 18:27 ec2 07/20 21:24 Order name: Troponin High Sensitivity; Complete Time: 21:46 lg3 07/20 17:27 Order name: XRAY Chest (1 view); Complete Time: 19:01 ec2 07/20 17:27 Order name: Cardiac monitoring; Complete Time: 17:45 ec2 07/20 17:27 Order name: EKG - Nurse/Tech; Complete Time: 17:45 ec2 07/20 17:27 Order name: IV Saline Lock; Complete Time: 17:45 ec2 07/20 17:27 Order name: Labs collected and sent; Complete Time: 17:45 ec2 07/20 17:27 Order name: O2 Per Protocol; Complete Time: 17:45 ec2 07/20 17:27 Order name: O2 Sat Monitoring; Complete Time: 17:45 ec2 07/20 17:53 Order name: Labs - recollect needed: green top; Complete Time: 18:04 kb 07/20 19:00 Order name: Misc. Order: repeat trop 1930; Complete Time: 20:21 ec2 Administered Medications: 16:44 Drug: Potassium Chloride IV 20 mEq IV at calculated rate once; administer over 1-2 ss hours Route: IV; Rate: calculated rate; Site: right antecubital; 21:50 Follow up: Response: No adverse reaction; IV Status: Completed infusion; IV Intake: [id number] 16:44 Drug: NS 0.9% IV 250 ml IV at calculated rate once; to administer with potassium ss infusion. Route: IV; Rate: calculated rate; Site: right antecubital; 21:50 Follow up: Response: No adverse reaction; IV Status: Completed infusion; IV Intake: bm8 250ml 17:52 Drug: Ativan IVP 1 mg IVP once Route: IVP; Site: right antecubital; ss 18:44 Follow up: Response: No adverse reaction; Marked relief of symptoms ss 18:44 Drug: Potassium Chloride PO 40 mEq PO once Route: PO; ss 21:50 Follow up: Response: No adverse reaction bm8 Disposition Summary: 07/21/23 21:46 Discharge Ordered Notes: Location: Home fred Condition: Stable fred Diagnosis - Generalized anxiety disorder fred - Hypokalemia fred Followup: ec2 - With: Private Physician - When: - Reason: Re-evaluation by your physician Discharge Instructions: - Discharge Summary Sheet ec2 - Hypokalemia ec2 Forms: - Medication Reconciliation Form fred - Antibiotic Education fred - Prescription Opioid Use fred - Patient Portal Instructions fred - Leadership Thank You Letter fred Prescriptions: - Hydroxyzine HCl 50 mg Oral Tablet - take 1 tablet ORAL route every 8 hours As needed; 20 tablet; Refills: 0, ec2 Product Selection Permitted Signatures: Dispatcher [employer] Annette Dhillon, CAMERON-C BAR CAPTAIN-Rainer Olson MD MD cha Blanchard, Shelby, RN RN ss Valdo Samuel MD MD ec2 Bry Duran RN bm8 Corrections: (The following items were deleted from the chart) 17:27 17:27 Chest Single View+RAD.[email or web address].[email or web address] ordered. [facility]
--- NOTE | 2023-07-21 21:46 | ER ---
Nurse's Notes [facility] Name: Janet Alcantara Age: 38 yrs Sex: Female : 1985 Arrival Date: 07/21/2023 Time: 17:21 Bed 6 Private MD: Diagnosis: Generalized anxiety disorder;Hypokalemia Presentation: 07/20 17:41 Chief complaint: Patient states: Seen by PCP 3 weeks ago and diagnosed with HTN and ss anxiety. Pt reports the past two days she has been feeling worse, reporting palpitations, anxiety, dizziness and difficulty breathing. Coronavirus screen: Client denies travel out of the [place] in the last 14 days. Ebola Screen: Patient denies exposure to infectious person. Patient denies travel to an Ebola-affected area in the 21 days before illness onset. Initial Sepsis Screen: Does the patient meet any 2 criteria? No. Patient's initial sepsis screen is negative. Does the patient have a suspected source of infection? No. Patient's initial sepsis screen is negative. Risk Assessment: Do you want to hurt yourself or someone else? Patient reports no desire to harm self or others. Onset of symptoms is unknown. 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 - Infectious Disease History:: Denies. - Social history:: Smoking status: Patient denies any tobacco usage or history of. Patient uses recently quit smoking marijuana a few days ago. Screenin:43 [facility] ED Fall Risk Assessment (Adult) History of falling in the last 3 months, ss including since admission No falls in past 3 months (0 pts) Confusion or Disorientation No (0 pts) Intoxicated or Sedated No (0 pts) Impaired Gait No (0 pts) Mobility Assist Device Used No (0 pt) Altered Elimination No (0 pt) Score/Fall Risk Level 0 - 2 = Low Risk Oriented to surroundings, Maintained a safe environment. Abuse screen: Denies threats or abuse. Denies injuries from another. Nutritional screening: No deficits noted. Tuberculosis screening: Never had TB. Assessment: 17:30 Reassessment: Pt reports feeling increasingly anxious for the past 2 days. General: ss Appears comfortable, Behavior is cooperative, anxious, Denies fever. Pain: Denies pain. Neuro: Level of Consciousness is awake, alert, obeys commands, Oriented to person, place, time, situation. Cardiovascular: Pulses are palpable in right radial artery and left radial artery. Respiratory: Airway is patent Respiratory effort is even, unlabored, Respiratory pattern is regular, symmetrical. GI: Patient currently denies diarrhea, nausea, vomiting. EENT: Oral mucosa is moist. 18:27 Reassessment: Patient appears in no apparent distress at this time. Patient and/or ss family updated on plan of care and expected duration. Pain level reassessed. Patient is alert, oriented x 3, equal unlabored respirations, skin warm/dry/pink. Pt reports that she feels like her anxiety has improved after Ativan administration Patient states feeling better. Patient states symptoms have improved. 19:13 Reassessment: Patient appears in no apparent distress at this time. Patient and/or tm6 family updated on plan of care and expected duration. Pain level reassessed. Patient is alert, oriented x 3, equal unlabored respirations, skin warm/dry/pink. Pain: Pain does not radiate. 20:22 Reassessment: Patient appears in no apparent distress at this time. Patient and/or tm6 family updated on plan of care and expected duration. Pain level reassessed. Patient is alert, oriented x 3, equal unlabored respirations, skin warm/dry/pink. 20:35 Reassessment: Patient appears in no apparent distress at this time. Patient and/or ss family updated on plan of care and expected duration. Pain level reassessed. Patient is alert, oriented x 3, equal unlabored respirations, skin warm/dry/pink. Patient denies pain at this time. Patient states feeling better. Patient states symptoms have improved. 21:48 Reassessment: Patient appears in no apparent distress at this time. No changes from bm8 previously documented assessment. Patient and/or family updated on plan of care and expected duration. Pain level reassessed. Patient is alert, oriented x 3, equal unlabored respirations, skin warm/dry/pink. Patient denies pain at this time. Patient states feeling better. Patient states symptoms have improved. Pain: Denies pain. Vital Signs: 17:41 BP 156 / 107; Pulse 91; Resp 20; Temp 98.4(O); Pulse Ox 100% on R/A; Weight 58.06 kg; ss Height 5 ft. 7 in. ; Pain 0/10; 18:26 BP 127 / 98; Pulse 87; Resp 15; Pulse Ox 100% ; Pain 0/10; ss 19:13 BP 145 / 97; Pulse 81; Resp 22; Pulse Ox 100% on R/A; Pain 0/10; tm6 20:21 BP 128 / 84; Pulse 91; Pulse Ox 100% on R/A; tm6 20:35 BP 128 / 94; Pulse 100; Resp 20; Temp 98.4; Pulse Ox 100% on R/A; Pain 0/10; ss 21:48 BP 131 / 90; Pulse 81; Resp 20; Temp 98.4; Pulse Ox 100% ; Pain 0/10; bm8 17:41 Body Mass Index 20.05 (58.06 kg, 170.18 cm) ss 17:41 Pain Scale: Adult ss 18:26 Pain Scale: Adult ss 19:13 Pain Scale: Adult tm6 20:35 Pain Scale: Adult ss 21:48 Pain Scale: Adult bm8 Radha Coma Score: 20:35 Eye Response: spontaneous(4). Motor Response: obeys commands(6). Verbal Response: ss oriented(5). Total: 15. ED Course: 17:23 Patient arrived in ED. rg4 17:26 Valdo Samuel MD is Attending Physician. ec2 17:41 Adali Rojo, DONNA is Primary Nurse. ss 17:42 Inserted saline lock: 20 gauge in right antecubital area, using aseptic technique. [id number] Blood collected. 17:44 Triage completed. ss 17:44 Arm band placed on left wrist. ss 17:46 Basic Metabolic Panel Sent. ss 17:46 CBC with Diff Sent. ss 17:46 PT-INR Sent. ss 17:47 Troponin HS Sent. ss 18:24 XRAY Chest (1 view) In Process Unspecified. EDMS 18:43 Patient has correct armband on for positive identification. Bed in low position. Call ss light in reach. Side rails up X2. Client placed on continuous cardiac and pulse oximetry monitoring. NIBP monitoring applied. Warm blanket given. 19:14 Report given to Bry RN and DONNA Mendoza. ss 20:36 No provider procedures requiring assistance completed. O2 via not O2 needed at this ss time. 20:36 Provided Education on: POST ER CARE. ss 21:48 IV discontinued, intact, bleeding controlled, No redness/swelling at site. Pressure bm8 dressing applied. Administered Medications: 16:44 Drug: Potassium Chloride IV 20 mEq IV at calculated rate once; administer over 1-2 ss hours Route: IV; Rate: calculated rate; Site: right antecubital; 21:50 Follow up: Response: No adverse reaction; IV Status: Completed infusion; IV Intake: [id number] 16:44 Drug: NS 0.9% IV 250 ml IV at calculated rate once; to administer with potassium ss infusion. Route: IV; Rate: calculated rate; Site: right antecubital; 21:50 Follow up: Response: No adverse reaction; IV Status: Completed infusion; IV Intake: bm8 250ml 17:52 Drug: Ativan IVP 1 mg IVP once Route: IVP; Site: right antecubital; ss 18:44 Follow up: Response: No adverse reaction; Marked relief of symptoms ss 18:44 Drug: Potassium Chloride PO 40 mEq PO once Route: PO; ss 21:50 Follow up: Response: No adverse reaction bm8 Medication: 20:37 VIS not applicable for this client. ss Intake: 21:50 IV: 250ml; Total: 250ml. bm8 21:50 IV: 50ml; Total: 300ml. bm8 Outcome: 21:46 Discharge ordered by . fred 21:48 Discharged to home ambulatory, bm8 21:48 Condition: stable 21:48 Discharge instructions given to patient, Instructed on discharge instructions, follow up and referral plans. no drinking with medication, no driving heavy equipment, medication usage, safety practices, Demonstrated understanding of instructions, follow-up care, medications, Prescriptions given X 1, patient refused prescription 21:49 Patient left the ED. bm8 Signatures: Dispatcher Med[employer]ama[employer] EDRainer Bernal MD MD cha Blanchard, Shelby, RN RN Candelaria Ray rg4 Valdo Samuel MD MD 2 Adrianne Woodard [facility] Kelly Paez RN RN tm6 Bry Duran RN RN bm8 Corrections: (The following items were deleted from the chart) 22:07 21:48 Discharge instructions given to patient, Instructed on discharge instructions, tm6 follow up and referral plans. no drinking with medication, no driving heavy equipment, medication usage, safety practices, Demonstrated understanding of instructions, follow-up care, medications, Prescriptions given X 1, bm8
[2023-07-21 22:20] VITALS: BP 131/90; TEMP 98.4; O2SAT 100
--- NOTE | 2023-07-23 14:57 | EKG ---
Test Date: 2023-07-21 Test Time: 17:31:18 Formula Weigher: PH MEASUREMENT RESULTS: Intervals: Rate: 96 IA: 116 QRSD: 84 QT: 362 QTc: 457 [place]: P: 72 IA: 116 QRS: 81 T: 57 INTERPRETIVE STATEMENTS: Normal sinus rhythm Normal ECG Compared to ECG 02/12/2020 16:43:33 Sinus bradycardia no longer present Sinus arrhythmia no longer present ST (T wave) deviation no longer present Electronically Signed On 07-23-23 14:52:03 CDT by Aristides Farmer
== END 2023-07-21 21:49 | disposition home or self-care (01) ==
LOC: ER 17:21
DX: F41.1 Generalized anxiety disorder (principal); E87.6 Hypokalemia
CPT/HCPCS: 36415; 71045; 80048; 84484; 85025; 85610; 93005; 96365; 96366; 96368; 96375; 99285; J3480; J7050

== ENCOUNTER 2024-04-13 10:57 | Emergency (ER) | payer SELFPAY ==
[2024-04-13] MEDS ORDERED: BENZONATATE 100 MG CAP PO ONE (11:30)
[2024-04-13] MEDS ORDERED: IBUPROFEN 400 MG TAB ONE (11:30)
[2024-04-13 12:11] LABS: Influenza A Ag Negative; Influenza B Ag Negative; SARS-CoV-2 Antigen Rapid Res Negative (Negative)
--- NOTE | 2024-04-13 12:41 | RAD REPORT ---
Procedure: Chest Pa And Lat (2 Views) HISTORY: Cough COMPARISON: 2023 FINDINGS: The lungs appear clear of acute infiltrate. No significant pleural effusion noted. The heart is normal size. IMPRESSION: No acute abnormality is displayed.
--- NOTE | 2024-04-13 13:33 | EDPHYS ---
Physician Documentation [facility] Name: Janet Alcantara Age: 39 yrs Sex: Female : 1985 Arrival Date: 04/13/2024 Time: 10:57 Bed IW1 Private MD: ED Physician Rainer Howard HPI: 04/13 11:30 This 39 yrs old Female presents to ER via Ambulatory with complaints of Fever, Flu cp Symptoms. 11:30 The patient reports fever, not measured (subjective). Onset: The symptoms/episode cp began/occurred 2 day(s) ago. 11:30 Associated signs and symptoms: Pertinent positives: cough, sore throat, Pertinent cp negatives: diarrhea, vomiting. Severity of symptoms: in the emergency department the symptoms are unchanged despite home interventions. Historical: - Allergies: 11:24 albuterol; hb - PMHx: 11:24 adhd; Anxiety; Endometrosis; Hypertensive disorder; hb - PSHx: 11:24 section; surgery for endometriosis; hb - Immunization history:: Adult Immunizations up to date. - Infectious Disease History:: Denies. - Social history:: Smoking status: unknown. ROS: 11:35 Eyes: Negative for injury, pain, redness, and discharge, cp 11:35 Constitutional: Positive for body aches, fever, Negative for poor PO intake, 11:35 ENT: Positive for sore throat, Negative for drainage from ear(s), ear pain, difficulty swallowing, difficulty handling secretions, 11:35 Cardiovascular: Negative for chest pain, palpitations, 11:35 Respiratory: Positive for cough, Negative for wheezing, 11:35 Abdomen/GI: Negative for abdominal pain, vomiting, diarrhea, constipation, 11:35 Neuro: Negative for altered mental status, 11:35 All other systems are negative, Exam: 11:40 Constitutional: The patient appears in no acute distress, alert, awake, cp non-diaphoretic, non-toxic, well developed, well nourished, uncomfortable, 11:40 Head/Face: Normocephalic, atraumatic. cp 11:40 Eyes: Periorbital structures: appear normal, Conjunctiva: normal, no exudate, no injection, Sclera: no appreciated abnormality, Lids and lashes: appear normal, bilaterally, 11:40 ENT: External ear(s): are unremarkable, Ear canal(s): are normal, clear, TM's: dullness, bilaterally, Nose: is normal, Mouth: Lips: moist, Oral mucosa: moist, Posterior pharynx: Airway: no evidence of obstruction, patent, Tonsils: with erythema, no enlargement, no exudate, swelling, is not appreciated, erythema, that is mild, exudate, is not appreciated, 11:40 Neck: ROM/movement: Meningeal signs: are not present, 11:40 Chest/axilla: Inspection: normal, 11:40 Cardiovascular: Rate: tachycardic, Rhythm: regular, 11:40 Respiratory: the patient does not display signs of respiratory distress, Respirations: normal, no use of accessory muscles, no retractions, labored breathing, is not present, Breath sounds: bronchial sounds, that are mild, are heard diffusely, stridor, is not appreciated, wheezing: is not appreciated, 11:40 Abdomen/GI: Exam negative for discomfort, distension, guarding, Inspection: abdomen appears normal, Vital Signs: 11:23 BP 127 / 78; Pulse 112; Resp 18; Temp 99(O); Pulse Ox 100% on R/A; Weight 68.04 kg; hb Height 5 ft. 7 in. ; Pain 6/10; 14:18 Pulse 92; Resp 16; Temp 98.4; Pulse Ox 100% ; db 11:23 Body Mass Index 23.49 (68.04 kg, 170.18 cm) hb 11:23 Pain Scale: Adult hb MDM: 11:23 Medical Screening Exam initiated cp 13:00 Differential diagnosis: viral Infection, bacterial infection, bronchitis, pneumonia. 13:33 Data reviewed: vital signs, nurses notes, lab test result(s), radiologic studies, plain cp films, and as a result, I will discharge patient. 13:33 I considered the following discharge prescriptions or medication management in the emergency department Medications were administered in the Emergency Department. See MAR. 13:33 Independent interpretation of the following test(s) in the Emergency Department X-Ray: My interpretation is chest xray negative for focal pneumonia. Counseling: I had a detailed discussion with the patient and/or guardian regarding the historical points, exam findings, and any diagnostic results supporting the discharge/admit diagnosis, lab results, radiology results, to return to the emergency department if symptoms worsen or persist or if there are any questions or concerns that arise at home. Response to treatment: the patient's symptoms have mildly improved after treatment, and as a result, I will discharge patient. 04/13 11:28 Order name: Group A Streptococcus Rapid; Complete Time: 13:31 cp 04/13 13:31 Interpretation: Reviewed. cp 04/13 11:28 Order name: COVID-19 Ag + Flu A+B Ag; Complete Time: 13:31 cp 04/13 13:32 Interpretation: Reviewed. cp 04/13 11:58 Order name: Throat Culture EDAR 04/13 11:28 Order name: XRAY Chest Pa And Lat (2 Views); Complete Time: 13:31 cp 04/13 13:31 Interpretation: Report reviewed. cp Administered Medications: 11:35 Drug: Tessalon Perle PO 200 mg PO once Route: PO; hb 14:20 Follow up: Response: No adverse reaction db 11:36 Drug: Ibuprofen PO 800 mg PO once Route: PO; hb 14:20 Follow up: Response: No adverse reaction db Disposition Summary: 04/13/24 13:33 Discharge Ordered Notes: Location: Home cp Problem: new cp Symptoms: have improved cp Condition: Stable cp Diagnosis - Cough cp - Acute pharyngitis, unspecified cp Followup: cp - With: Private Physician - When: 2 - 3 days - Reason: Worsening of condition Discharge Instructions: - Discharge Summary Sheet cp - Pharyngitis cp - Cool Mist Vaporizer cp - Cough, Adult cp Forms: - Medication Reconciliation Form cp - Antibiotic Education cp - Prescription Opioid Use cp - Patient Portal Instructions cp - Leadership Thank You Letter cp Prescriptions: - Bromfed DM 2-30-10 mg/5 mL Oral syrup - administer 10 milliliter ORAL route every 6 hours as needed for cold symptoms; cp 240 milliliter; Refills: 0, Product Selection Permitted - Ibuprofen 800 mg Oral Tablet - take 1 tablet ORAL route every 8 hours As needed take with food; 30 tablet; cp Refills: 0, Product Selection Permitted Signatures: Dispatcher [employer] EDAR Rainer Fuller PA PA cp Gena Quiroga, RN RN Carrol Sharif RN RN db Corrections: (The following items were deleted from the chart) 04/14 13:58 13:56 Constitutional: Positive for body aches, fever, Negative for poor PO intake, cp cp 13:58 13:56 Cardiovascular: Negative for chest pain, palpitations, cp cp 13:58 13:56 Respiratory: Positive for cough, Negative for wheezing, cp cp 13:58 13:56 Abdomen/GI: Negative for abdominal pain, vomiting, diarrhea, constipation, cp cp 13:58 13:56 Eyes: Negative for injury, pain, redness, and discharge, cp cp 13:58 13:56 ENT: Positive for sore throat, Negative for drainage from ear(s), ear pain, cp difficulty swallowing, difficulty handling secretions, cp 13:58 13:56 Neuro: Negative for altered mental status, cp cp 13:58 13:56 All other systems are negative, cp cp
--- NOTE | 2024-04-13 13:33 | ER ---
Nurse's Notes [facility] Name: Janet Alcantara Age: 39 yrs Sex: Female : 1985 Arrival Date: 04/13/2024 Time: 10:57 Bed IW1 Private MD: Diagnosis: Cough;Acute pharyngitis, unspecified Presentation: 04/13 11:23 Chief complaint: Headache, sore throat, painful cough, body aches, chills,and fever x 2 hb days. TMAX 101.3. Took DayQuil at 0700. Coronavirus screen: Client presents with at least one sign or symptom that may indicate coronavirus-19. Standard/surgical mask placed on the client. Provider contacted for isolation considerations. Ebola Screen: No symptoms or risks identified at this time. Initial Sepsis Screen: Does the patient meet any 2 criteria? No. Patient's initial sepsis screen is negative. Does the patient have a suspected source of infection? No. Patient's initial sepsis screen is negative. Risk Assessment: Do you want to hurt yourself or someone else? Patient reports no desire to harm self or others. Onset of symptoms was April 12, 2024. 11:23 Method Of Arrival: Ambulatory hb 11:23 Acuity: NUNO 4 hb Triage Assessment: 11:25 General: Appears in no apparent distress. ill, Behavior is calm, cooperative. Pain: hb Pain currently is 5 out of 10 on a pain scale. EENT: Reports nasal congestion sore throat. Neuro: Level of Consciousness is awake, alert, obeys commands, Oriented to person, place, time, situation. Cardiovascular: Patient's skin is warm and dry. Respiratory: Reports cough that is non-productive, pain with cough Respiratory effort is even, unlabored, Respiratory pattern is regular, symmetrical. Historical: - Allergies: 11:24 albuterol; hb - PMHx: 11:24 adhd; Anxiety; Endometrosis; Hypertensive disorder; hb - PSHx: 11:24 section; surgery for endometriosis; hb - Immunization history:: Adult Immunizations up to date. - Infectious Disease History:: Denies. - Social history:: Smoking status: unknown. Screenin:18 [facility] ED Fall Risk Assessment (Adult) History of falling in the last 3 months, db including since admission No falls in past 3 months (0 pts) Confusion or Disorientation No (0 pts) Intoxicated or Sedated No (0 pts) Impaired Gait No (0 pts) Mobility Assist Device Used No (0 pt) Altered Elimination No (0 pt) Score/Fall Risk Level 0 - 2 = Low Risk Oriented to surroundings, Maintained a safe environment. Abuse screen: Denies threats or abuse. Denies injuries from another. Nutritional screening: No deficits noted. Tuberculosis screening: No symptoms or risk factors identified. Assessment: 14:18 Reassessment: Patient appears in no apparent distress at this time. Patient and/or db family updated on plan of care and expected duration. Pain level reassessed. Patient is alert, oriented x 3, equal unlabored respirations, skin warm/dry/pink. General: Appears in no apparent distress. comfortable, Behavior is calm, cooperative. Pain: Denies pain. Pain does not radiate. Pain began gradually. Neuro: Level of Consciousness is awake, alert, obeys commands, Oriented to person, place, time, situation. Vital Signs: 11:23 BP 127 / 78; Pulse 112; Resp 18; Temp 99(O); Pulse Ox 100% on R/A; Weight 68.04 kg; hb Height 5 ft. 7 in. ; Pain 6/10; 14:18 Pulse 92; Resp 16; Temp 98.4; Pulse Ox 100% ; db 11:23 Body Mass Index 23.49 (68.04 kg, 170.18 cm) hb 11:23 Pain Scale: Adult hb ED Course: 11:00 Patient arrived in ED. al6 11:02 Rainer Fuller PA is PHCP. cp 11:02 Rainer Howard MD is Attending Physician. cp 11:24 Triage completed. hb 11:25 Arm band placed on. hb 11:35 COVID-19 Ag + Flu A+B Ag Sent. hb 11:36 Group A Streptococcus Rapid Sent. hb 12:26 XRAY Chest Pa And Lat (2 Views) In Process Unspecified. EDMS 14:18 Patient has correct armband on for positive identification. Provided Education on: db PRESCRIPTIONS, DISCHARGE AND FOLLOWUP. 14:18 No provider procedures requiring assistance completed. Patient did not have IV access db during this emergency room visit. Patient maintains SpO2 saturation greater than 95% on room air. Administered Medications: 11:35 Drug: Tessalon Perle PO 200 mg PO once Route: PO; hb 14:20 Follow up: Response: No adverse reaction db 11:36 Drug: Ibuprofen PO 800 mg PO once Route: PO; hb 14:20 Follow up: Response: No adverse reaction db Medication: 14:18 VIS not applicable for this client. db Outcome: 13:33 Discharge ordered by . cp 14:18 Discharged to home ambulatory, db 14:18 Condition: stable 14:18 Discharge instructions given to patient, Instructed on discharge instructions, follow up and referral plans. Prescriptions given X 2, 14:20 Patient left the ED. db Signatures: Dispatcher [employer] EDMS Rainer Fuller PA PA cp Baxter, Heather RN RN hb Carrol Christopher RN RN db Fabi Webb Corrections: (The following items were deleted from the chart) 11:36 11:23 BP 127 / 78; Pulse 112bpm; Resp 18bpm; Pulse Ox 100% RA; Temp 99F Oral; Pain hb 6/10, Adult; hb
[2024-04-13 14:28] VITALS: BP 127/78; O2SAT 100
[2024-04-13 14:29] VITALS: TEMP 98.4
== END 2024-04-13 14:20 | disposition home or self-care (01) ==
LOC: ER 10:57
DX: R05.9 Cough, unspecified (principal); J02.9 Acute pharyngitis, unspecified; Z11.52 Encounter for screening for COVID-19
CPT/HCPCS: 36415; 71046; 87070; 87428; 99283